=== PATIENT | female | born 1960 | race African-American/Black ===

== ENCOUNTER 2019-08-09 16:29 | Emergency (ER) | payer OTHER ==
[~2019-08-09] VITALS: Ht 167.6 cm; Wt 158.8 kg
[2019-08-09 16:31] VITALS: BP 141/79
[2019-08-09 18:03] LABS: APPEARANCE,URINE CLEAR (CLEAR); BILIRUBIN,URINE NEGATIVE (NEGATIVE); BLOOD, URINE 2+ (NEGATIVE); COLOR,URINE YELLOW (YELLOW); LEUKOCYTE ESTERASE ,URINE NEGATIVE (NEGATIVE); NITRITE, URINE NEGATIVE (NEGATIVE); UGLUCOSE NEGATIVE (NEGATIVE)
[2019-08-09 18:14] LABS: RBC,URINE 11-20 (MOD) /HPF (0-5); WBC,URINE 0-5 /HPF (0-5)
[2019-08-09 18:16] LABS: HEMATOCRIT 31.6 % (36-48); MEAN CORPUSCULAR HEMOGLOBIN 30 pg (27-31); MEAN CORPUSCULAR HGB CONC 32 g/dL (33-37); MEAN CORPUSCULAR VOLUME 95.3 fL (80-94); PLATELET COUNT (AUTO) 151 K/uL (140-450); RED BLOOD CELL COUNT(AUTO) 3.31 MIL/uL (4.20-5.40); RED CELL DISTRIBUTION WIDTH 17.5 % (11.6-13.7); WHITE BLOOD COUNT (AUTO) 9.5 K/uL (4.8-10.8)
[2019-08-09 18:31] LABS: ANION GAP 12.7 (8-16); CARBON DIOXIDE 30.8 mmol/L (21-32); CREATININE 2.2 mg/dL (0.6-1.3); POTASSIUM 3.5 mmol/L (3.5-5.1)
[2019-08-09 18:35] LABS: ALBUMIN 2.5 g/dL (3.4-5.0); TOTAL BILIRUBIN 1.9 mg/dL (0.0-1.0)
[2019-08-09 18:58] LABS: BASOPHILS % (MANUAL) 0 % (0-2); EOSINOPHILS % (MANUAL) 5 % (0-4); LYMPHOCYTES % (MANUAL) 7 % (20-46); MONOCYTES % (MANUAL) 13 % (5-12)
[2019-08-09] MEDS: LEVOFLOXACIN 500 MG TAB PO ONE (19:14)
[2019-08-10 01:14] VITALS: BP 150/58
== END 2019-08-10 01:14 ==
LOC: MED 16:29
DX: G89.29 Other chronic pain (principal); M25.511 Pain in right shoulder; D64.9 Anemia, unspecified; E87.1 Hypo-osmolality and hyponatremia; E11.22 Type 2 diabetes mellitus with diabetic chronic kidney disease; N18.6 End stage renal disease; R74.0 Nonspecific elevation of levels of transaminase and lactic acid dehydrogenase [LDH]; Z99.2 Dependence on renal dialysis; Z88.5 Allergy status to narcotic agent
CPT/HCPCS: 36415; 71045; 73030; 80053; 81001; 83605; 85025; 87040; 87086; 87186; 99284; Q0092; C1758

== ENCOUNTER 2020-03-18 14:50 | Emergency (ER) | payer OTHER ==
[~2020-03-18] VITALS: Ht 152.4 cm; Wt 158.8 kg
[~2020-03-18 14:50] MED LIST: ACET325C8 PO; ASPI-1822 PO; BUME1TAB92 PO; CALC500C17 PO; DOCU-299 PO; ESCI20TA PO; GABA100C PO; LACT10SO1 PO; LID5T TP; LORA-476 PO; MIRABULK PO; MULT-1469 PO; NITR0.4T2 SL; NUTR30LI3 PO; OXYC40TE66 PO; SODI45SP10 NS; SYN.075 PO; TRAM50TA1 PO
[2020-03-18 14:53] VITALS: BP 164/86
[2020-03-18] MEDS ORDERED: HYDROmorphone PFS 2 MG/ML SYR IM ONE ×3 (15:35→18:40)
[2020-03-18 16:53] LABS: BASOPHILS # (AUTO) 0.1 K/uL (0.00-0.22); BASOPHILS % (AUTO) 1.1 % (0.0-2.0); EOSINOPHILS # (AUTO) 0.3 K/uL (0-0.4); HEMATOCRIT 27.5 % (36-48); HEMOGLOBIN 8.5 g/dL (12.0-16.0); LYMPHOCYTES % (AUTO) 17.2 % (20.5-51.1); MEAN CORPUSCULAR HEMOGLOBIN 24 pg (27-31); MEAN CORPUSCULAR HGB CONC 31 g/dL (33-37); MEAN CORPUSCULAR VOLUME 77.3 fL (80-94); MONOCYTES # (AUTO) 0.5 K/uL (0.8-1.0); MONOCYTES % (AUTO) 7.9 % (1.7-9.3); NEUTROPHILS # (AUTO) 4.1 K/uL (1.8-7.7); NEUTROPHILS % (AUTO) 68.8 % (42.2-75.2); PLATELET COUNT (AUTO) 294 K/uL (140-450); RED BLOOD CELL COUNT(AUTO) 3.56 MIL/uL (4.20-5.40)
[2020-03-18 17:04] LABS: ALBUMIN 2.3 g/dL (3.4-5.0); CARBON DIOXIDE 31.3 mmol/L (21-32); CREATININE 2.2 mg/dL (0.6-1.3); POTASSIUM 3.3 mmol/L (3.5-5.1); TOTAL BILIRUBIN 0.4 mg/dL (0.0-1.0)
[2020-03-18] MEDS ORDERED: diphenhydrAMINE 50 MG/ML VIAL IM ONE (17:10)
[2020-03-18 22:22] VITALS: BP 145/56
== END 2020-03-18 22:23 | disposition home or self-care (01) ==
LOC: MED 14:50
DX: G89.29 Other chronic pain (principal); D64.9 Anemia, unspecified; E11.8 Type 2 diabetes mellitus with unspecified complications; E03.9 Hypothyroidism, unspecified; E11.22 Type 2 diabetes mellitus with diabetic chronic kidney disease; F41.8 Other specified anxiety disorders; F31.9 Bipolar disorder, unspecified; F20.9 Schizophrenia, unspecified; I50.9 Heart failure, unspecified; I10 Essential (primary) hypertension; I13.0 Hypertensive heart and chronic kidney disease with heart failure and stage 1 through stage 4 chronic kidney disease, or unspecified chronic kidney disease; K21.9 Gastro-esophageal reflux disease without esophagitis; N18.9 Chronic kidney disease, unspecified; Z95.1 Presence of aortocoronary bypass graft
CPT/HCPCS: 36415; 80053; 85025; 96372; 99284; J1170; J1200

== ENCOUNTER 2020-06-30 17:51 | Emergency (ER) | payer OTHER ==
[~2020-06-30] VITALS: Ht 165.1 cm; Wt 204.1 kg
[2020-06-30 18:15] VITALS: BP 155/82
[2020-06-30] MEDS ORDERED: hydrALAZINE 20 MG/ML VIAL IVP ONE (19:25)
[2020-06-30] MEDS ORDERED: KETOROLAC 30 MG/ML VIAL IVP ONE (19:25)
[2020-06-30] MEDS ORDERED: MORPHINE SULFATE 4 MG/ML SYR IVP ONE (20:25)
[2020-06-30] MEDS ORDERED: ACETAMINOPHEN EXTRA STRENGTH 500 MG TAB PO ONE (20:25)
[2020-06-30] MEDS ORDERED: diphenhydrAMINE 50 MG/ML VIAL IVP ONE (20:40)
[2020-06-30] MEDS ORDERED: LORazepam 2 MG/ML VIAL IVP ONE (21:30)
[2020-07-01] MEDS ORDERED: ZOLPIDEM 5 MG TAB PO ONE ×2 (01:20→01:45)
[2020-07-01] MEDS ORDERED: diphenhydrAMINE 50 MG/ML VIAL IVP ONE ×2 (01:20→10:10)
[2020-07-01] MEDS ORDERED: KETOROLAC 30 MG/ML VIAL IVP ONE (01:45)
[2020-07-01] MEDS ORDERED: MORPHINE SULFATE 4 MG/ML SYR IVP ONE ×2 (09:30→09:55)
[2020-07-01] MEDS ORDERED: diphenhydrAMINE 50 MG/ML VIAL ONE (10:11)
[2020-07-01 10:53] VITALS: BP 162/85
== END 2020-07-01 10:50 | disposition home or self-care (01) ==
LOC: MED 17:51
DX: R51 Headache (principal); G89.29 Other chronic pain; M54.5 Low back pain; E11.22 Type 2 diabetes mellitus with diabetic chronic kidney disease; I12.9 Hypertensive chronic kidney disease with stage 1 through stage 4 chronic kidney disease, or unspecified chronic kidney disease; N18.9 Chronic kidney disease, unspecified; E07.9 Disorder of thyroid, unspecified; Z88.5 Allergy status to narcotic agent; Z88.8 Allergy status to other drugs, medicaments and biological substances; Z79.899 Other long term (current) drug therapy
CPT/HCPCS: 70450; 96374; 96375; 96376; 99285; J0360; J1200; J1885; J2060; J2270; 99284

== ENCOUNTER 2020-08-23 03:09 | Emergency (ER) | payer OTHER ==
[~2020-08-23] VITALS: Ht 170.2 cm; Wt 172.4 kg
[2020-08-23 03:11] VITALS: BP 167/82
[2020-08-23] MEDS ORDERED: LORazepam 2 MG/ML VIAL IM ONE (03:30)
[2020-08-23] MEDS ORDERED: ESCITALOPRAM 20 MG TAB PO SCH (08:35)
[2020-08-23] MEDS ORDERED: GABAPENTIN 300 MG CAP PO ONE (08:35)
[2020-08-23] MEDS ORDERED: LEVOTHYROXINE 0.075 MG TAB PO SCH (08:35)
[2020-08-23] MEDS ORDERED: oxyCODONE 10 MG TABER PO ONE ×2 (08:35→13:50)
[2020-08-23] MEDS ORDERED: BUMETANIDE 1 MG TAB PO ONE (08:35)
[2020-08-23 15:40] VITALS: BP 144/77
== END 2020-08-23 15:40 ==
LOC: MED 03:09
DX: F41.9 Anxiety disorder, unspecified (principal); E03.9 Hypothyroidism, unspecified; E11.9 Type 2 diabetes mellitus without complications; I51.9 Heart disease, unspecified; I10 Essential (primary) hypertension; N28.9 Disorder of kidney and ureter, unspecified; Z95.1 Presence of aortocoronary bypass graft; Z88.8 Allergy status to other drugs, medicaments and biological substances; Z88.5 Allergy status to narcotic agent; Z79.899 Other long term (current) drug therapy
CPT/HCPCS: 96372; 99285; J2060; 99284

== ENCOUNTER 2021-08-04 19:28 | Inpatient (IN) | payer OTHER, SELFPAY ==
[~2021-08-04] VITALS: Ht 167.6 cm; Wt 156.5 kg
[2021-08-04 19:28] VITALS: BP 141/55
[~2021-08-04 19:28] MED LIST changes: -ACET325C8 PO; +ASCO500T95 PO; -ASPI-1822 PO; +ASPI81CT95 PO; +CARV6.252 PO; +CEPH-588 PO; +CHOL100037 PO; -DOCU-299 PO; +EPOE10004 SQ; +ESCI10TA PO; -ESCI20TA PO; +FERR325E14 PO; +LACT-103 PO; -LACT10SO1 PO; -LID5T TP; +LORA10TA19 PO; -NITR0.4T2 SL; -NUTR30LI3 PO; +ZINC50TA PO
--- NOTE | 2021-08-04 19:28 | NUR ---
MENGRu FROM [facility], PT. IS A 60 Y/O FEMALE THAT CAME INTO ED WITH C/O OF NOSEBLEED. PER [facility], FACILITY STATES THAT PT. WAS PICKING NOSE WITH FORK AND STRAW CAUSING NOSEBLEED THAT HAS NOW TRAVELED TO SPITTING BLOOD. DENIES N/V/D. DENIES PAIN AT THIS TIME. AAOX4; VSS; GCS 15 PMH: SEE COMPLETE ASSESSMENT ALLERGIES: CODEINE, MORPHINE, PROMETHAZINE
--- NOTE | 2021-08-04 20:05 | NUR ---
LAB AT BEDSIDE
--- NOTE | 2021-08-04 20:09 | NUR ---
Jennifer case in ED - 08/04/21 at [address] Faustin examining patient.
--- NOTE | 2021-08-04 20:09 | NUR ---
TRISTIAN CHARLES AT BEDSIDE FOR MEDICAL EXAMINATION
[2021-08-04] MEDS ORDERED: SILVER NITRATE APPLICATOR 1 EA SWAB TP ONE ×2 (20:28→20:30)
[2021-08-04 20:36] LABS: BASOPHILS % (AUTO) 0.9 % (0.0-2.0); EOSINOPHILS # (AUTO) 0.1 K/uL (0-0.4); EOSINOPHILS % (AUTO) 2.9 % (0.0-4.0); HEMATOCRIT 20.2 % (36-48); LYMPHOCYTES # (AUTO) 0.6 K/uL (2.5-16.5); LYMPHOCYTES % (AUTO) 12.9 % (20.5-51.1); MEAN CORPUSCULAR HEMOGLOBIN 29 pg (27-31); MEAN CORPUSCULAR HGB CONC 32 g/dL (33-37); MEAN CORPUSCULAR VOLUME 92.1 fL (80-94); MONOCYTES # (AUTO) 0.6 K/uL (0.8-1.0); MONOCYTES % (AUTO) 12.1 % (1.7-9.3); NEUTROPHILS # (AUTO) 3.6 K/uL (1.8-7.7); NEUTROPHILS % (AUTO) 71.2 % (42.2-75.2); PLATELET COUNT (AUTO) 199 K/uL (140-450); RED BLOOD CELL COUNT(AUTO) 2.19 MIL/uL (4.20-5.40); RED CELL DISTRIBUTION WIDTH 18.6 % (11.6-13.7)
[2021-08-04 20:39] LABS: HEMOGLOBIN 6.4 g/dL (12.0-16.0)
[2021-08-04 20:47] LABS: ANION GAP 8.7 (8-16); CARBON DIOXIDE 27.9 mmol/L (21-32); POTASSIUM 3.6 mmol/L (3.5-5.1)
[2021-08-04 21:03] LABS: CREATININE 4.9 mg/dL (0.6-1.3)
[2021-08-04 21:04] LABS: PROTHROMBIN TIME 11.5 secs (10.8-13.4)
[2021-08-04] MEDS ORDERED: DESMOPRESSIN 4 MCG/ML AMP IV SCH (21:05)
[2021-08-04] MEDS ORDERED: TRANEXAMIC ACID 1,000 MG in NACL 0.9% 50 ML IV STA (21:12)
[2021-08-04] MEDS ORDERED: TRANEXAMIC ACID 1,000 MG/10 ML VIAL ONE (21:13)
--- NOTE | 2021-08-04 21:16 | NUR ---
TRISTIAN CHARLES AT BEDSIDE
[2021-08-04] MEDS ORDERED: NACL 0.9% 500 ML IV ONE (21:25)
--- NOTE | 2021-08-04 22:00 | NUR ---
DELAY IN MED ADMINISTRATION DUE TO UNSUCCESSFUL IV ATTEMPTS. TRISTIAN BRITTON MADE AWARE.
--- NOTE | 2021-08-04 22:30 | NUR ---
TRISTIAN CHARLES AT BEDSIDE ATTEMPTING TO PLACE ULTRASOUND GUIDED IV LINE.
[2021-08-04] MEDS ORDERED: HYDROcodone/APAP 10/325 MG 1 TAB TAB PO STA (22:52)
[2021-08-04] MEDS ORDERED: HYDROcodone/APAP 10/325 MG 1 TAB TAB ONE (22:56)
--- NOTE | 2021-08-05 00:33 | NUR ---
PT. IN SEMI FOWLERS POSITION WITH EYES CLOSED, LAYING COMFORTABLY IN BED. VOICES NO COMPLAINTS AT THIS TIME.
[2021-08-05] MEDS ORDERED: ONDANSETRON 4 MG/2 ML VIAL IVP PRN (00:55)
[2021-08-05] MEDS ORDERED: LORazepam 2 MG/ML VIAL IVP PRN (00:55)
--- NOTE | 2021-08-05 01:20 | NUR ---
BLOOD TRANSFUSION INITIATED AT THIS TIME.
--- NOTE | 2021-08-05 04:00 | NUR ---
SECOND UNIT OF BLOOD INITIATED.
--- NOTE | 2021-08-05 07:15 | NUR ---
REPORT GIVEN TO STEPAN BURGER. TRANSFER OF CARE AT THIS TIME.
--- NOTE | 2021-08-05 07:16 | NUR ---
REPORT AND CONTINUATION OF CARE RECEIVED FROM STEPAN BEAUCHAMP.
--- NOTE | 2021-08-05 07:40 | NUR ---
RECEIVED REPORT FROM ER NURSE ON PT. AWAITING PT ARRIVAL TO UNIT.
--- NOTE | 2021-08-05 07:45 | NUR ---
REPORT GIVEN TO STEPAN YUN FOR ADMISSION.
--- NOTE | 2021-08-05 07:46 | NUR ---
Patient will be admitted to care of DR ALVARADO. Admited to TELE. Will go to room 126B. Belongings list completed. Report to STEPAN YUN.
--- NOTE | 2021-08-05 07:49 | NUR ---
PT ARRIVED TO UNIT. PT AA&OX4, NON AMBULATORY DUE TO WEIGHT. PT DOES NOT TRY TO AMBULATE. PT ON RA BREATHING NORMAL AND UNLABORED. PT HAS R-FOREARM 20G IV INTACT AND PATENT. SKIN IS WARM, DRY, AND INTACT. WILL CONTINUE TO MONITOR PT CONDITION.
[2021-08-05 08:00] VITALS: BP 195/84
[2021-08-05] MEDS: MORPHINE SULFATE 2 MG/ML SYR IVP PRN ×2 (08:24→16:44)
--- NOTE | 2021-08-05 08:24 | NUR ---
PT COMPLAINED OF PAIN IN BACK AND BUTTOCKS 06/16. GAVE MORPHINE 1 MG PRN FOR SEVERE PAIN. WILL REASSESS IN 30 MIN.
--- NOTE | 2021-08-05 08:54 | NUR ---
PAIN REASSESSMENT COMPLETED. PT DENIES PAIN OR DISCOMFORT AT THIS TIME. WILL CONTINUE TO MONITOR.
--- NOTE | 2021-08-05 09:20 | NUR ---
PT CONDITION IS STABLE. PT IS AWAKE AND COMPLAININD OF BED BEING UNCOMFORTABLE. LET PT KNOW THAT I DO NOT HAVE ANOTHER BED AVAILABLE BUT FIXED LINENS AND CHUCKS UNDER PT. PT STATED FELT A LITTLE BETTER "BUT MY BED AT HOME IS MORE COMFORTABLE". WILL CONTINUE TO ASSESS PT CONDITION.
--- NOTE | 2021-08-05 11:32 | NUR ---
PT CONDITION IS STABLE. PT IS ASLEEP AND DOES NOT APPEAR TO BE IN PAIN OR DISCOMFORT. WILL CONTINUE TO MONITOR.
[2021-08-05 12:00] VITALS: BP 156/89
--- NOTE | 2021-08-05 13:30 | NUR ---
HD CONSENT SIGNED FOR PT, MACHINIST HELPER EXPLAINED PROCEDURE AND SIGNED CONSENT. SIVAKMUAR (HD NURSE) NOTIFIED ABOUT PT NEEDING HD TOMORROW. Addendum: 08/05/21 at 1341 by Chey Escobar RN RN DISREGARD. WRONG PT.
[2021-08-05] MEDS ORDERED: CLONIDINE HYDROCHLORIDE 0.1 MG TAB PO PRN (13:45)
--- NOTE | 2021-08-05 13:45 | NUR ---
PT IS ASLEEP. CONDITION IS STABLE. PT ON RA WITH NORMAL, UNLABORED BREATHING. PT DOES NOT APPEAR TO BE IN PAIN OR DISTRESS. WILL CONTINUE TO MONITOR PT.
--- NOTE | 2021-08-05 14:14 | NUR ---
REQUESTED PSYCH EVAL FOR PT. CALLED [facility] TO MAKE AN APPOINTMENT FOR PSYCH EVALUATION ORDERED BY DR. ALVARADO. PLACED ORDER PER PHYSICIAN ORDER.
--- NOTE | 2021-08-05 15:40 | NUR ---
PT CONDITION IS STABLE. PT IS ASLEEP AND DOES NOT APPEAR TO BE IN PAIN OR DISCOMFORT. WILL CONTINUE TO MONITOR PT CONDITION.
[2021-08-05 16:00] VITALS: BP 138/63
--- NOTE | 2021-08-05 16:34 | NUR ---
DC PLANNIN YRS OLD FEMALE PATIENT WAS ADMITTED FROM [facility] WITH A DX OF EPISTAXIS. PT HAS A HX OF KIDNEY DISEASE , EPISTAXIS, CAD, CABG, HTN AND SCHIZOAFFECTIVE DISORDER H/H WAS 6.4/20.2 ON ADMISSION. CXR SHOWED MILD INTERSTITIAL PULMONARY EDEMA, BORDERLINE CARDIOMEGALY. RAPID COVID TEST NEGATIVE. ADMINISTERED IVF, AND CONTINUED HOME MEDS. TRANSFUSED 2 UNITS PRBC H/H 7.3/22.3. CONSULTED WITH NEPHRO AND PSYCH. STARTED ON ABILIFY. DC PLAN TO GO BACK TO [facility] WHEN STABLE. CM TO FOLLOW
--- NOTE | 2021-08-05 16:44 | NUR ---
PT COMPLAINED OF BACK AND BOTTOM PAIN 06/16. PT STATED PAIN RADIATED TO LEGS AND ARMS. WILL REASSESS IN 30 MIN.
--- NOTE | 2021-08-05 17:45 | NUR ---
CHANGED PT. PT DID NOT TOLERATE WELL. PT WAS AGITATED THROUGHOUT CHANGE. PT STATED "I DO NOT WANT TO BE CHANGED AGAIN". PT IS CLEAN AND CONDITION IS STABLE. WILL CONTINUE TO MONITOR.
--- NOTE | 2021-08-05 18:33 | NUR ---
PLACED ORDER FOR EKG FOR DR. Glover. ATTEMPTED TO CONTACT RT MULTIPLE TIMES WITH NO ANSWER. WILL KEEP TRYING.
--- NOTE | 2021-08-05 19:10 | NUR ---
RECEIVED REPORT FROM COURT YING FOR CONTINUITY OF CARE. PT SITTING UP AAOX4. NO APPARENT S/S OF ACUTE DISTRESS. BREATHING EVEN AND UNLABORED ON RA WITH O2 SAT OF 97%. NO C/O CP, SOB OR PAIN. R FA 20G, INTACT/PATENT. POC AND WHITE COMMUNICATION BOARD UPDATED. BED IN LOW/LOCKED POSITION. CALL LIGHT WITHIN REACH. PT ENCOURAGED TO CALL FOR ANY NEEDS/ASSISTANCE. WILL CONTINUE TO MONITOR.
--- NOTE | 2021-08-05 19:36 | NUR ---
GAVE CHANGE OF SHIFT REPORT TO NIGHT NURSE AT BEDSIDE FOR CONTINUITY OF CARE. DISCUSSED POC. PT STABLE.
[2021-08-05 20:00] VITALS: BP 137/63
[2021-08-05] MEDS: oxyCODONE 10 MG TABER PO SCH (21:00)
[2021-08-05] MEDS: carvediloL 6.25 MG TAB PO SCH (21:00)
[2021-08-05] MEDS: ARIPiprazole 10 MG TAB PO SCH (21:00)
[2021-08-05] MEDS ORDERED: oxyCODONE 10 MG TABER PO ONE (22:35)
[2021-08-06] VITALS: BP 162/76
[2021-08-06 03:54] LABS: BASOPHILS % (AUTO) 0.8 % (0.0-2.0); EOSINOPHILS # (AUTO) 0.1 K/uL (0-0.4); EOSINOPHILS % (AUTO) 2.6 % (0.0-4.0); HEMATOCRIT 22.3 % (36-48); HEMOGLOBIN 7.3 g/dL (12.0-16.0); LYMPHOCYTES # (AUTO) 1.1 K/uL (2.5-16.5); LYMPHOCYTES % (AUTO) 19.3 % (20.5-51.1); MEAN CORPUSCULAR HEMOGLOBIN 30 pg (27-31); MEAN CORPUSCULAR HGB CONC 33 g/dL (33-37); MEAN CORPUSCULAR VOLUME 90.6 fL (80-94); MONOCYTES # (AUTO) 0.6 K/uL (0.8-1.0); MONOCYTES % (AUTO) 11.4 % (1.7-9.3); NEUTROPHILS # (AUTO) 3.6 K/uL (1.8-7.7); NEUTROPHILS % (AUTO) 65.9 % (42.2-75.2); PLATELET COUNT (AUTO) 191 K/uL (140-450); RED BLOOD CELL COUNT(AUTO) 2.46 MIL/uL (4.20-5.40); RED CELL DISTRIBUTION WIDTH 18.3 % (11.6-13.7); WHITE BLOOD COUNT (AUTO) 5.5 K/uL (4.8-10.8)
[2021-08-06 04:00] VITALS: BP 145/78
[2021-08-06 04:02] LABS: ALBUMIN 1.8 g/dL (3.4-5.0); ANION GAP 13.5 (8-16); CARBON DIOXIDE 25.4 mmol/L (21-32); POTASSIUM 3.9 mmol/L (3.5-5.1); TOTAL BILIRUBIN 0.3 mg/dL (0.0-1.0)
[2021-08-06 04:07] LABS: CREATININE 4.6 mg/dL (0.6-1.3)
--- NOTE | 2021-08-06 04:10 | NUR ---
RECEIVED CRITICAL LABS, BUN 76 AND CREATININE 4.6, BOTH TRENDING DOWN.
[2021-08-06] MEDS: LEVOTHYROXINE 0.075 MG TAB PO SCH (06:22)
--- NOTE | 2021-08-06 07:02 | NUR ---
REPORT GIVEN TO TYESHA YING FOR CONTINUITY OF CARE. PT SITTING UP AAOX3. NO APPARENT S/S OF ACUTE DISTRESS. BREATHING EVEN AND UNLABORED. BED IN LOW/LOCKED POSITION. CALL LIGHT WITHIN REACH. ALL NEEDS MET AT THIS TIME.
--- NOTE | 2021-08-06 07:15 | NUR ---
RECEIVED REPORT FROM NIGHT RN FOR CONTINUITY OF CARE. PT SITTING UP AAOX4. NO APPARENT S/S OF ACUTE DISTRESS. BREATHING EVEN AND UNLABORED ON RA WITH O2 SAT OF 97%,NO SOB PT COMPLAINS ABOUT PAIN . IV IN R FA 20G, INTACT/PATENT. POC UPDATED. BED IN LOW/LOCKED POSITION. CALL LIGHT WITHIN REACH. PT ENCOURAGED TO CALL FOR ANY NEEDS/ASSISTANCE.
--- NOTE | 2021-08-06 07:20 | NUR ---
PT COMPLAINS ABOUT PAIN, GOT MEDICATED PRN ORDER. ALLSAFETY MEASURES ON PLACE, CALLS LIGHT WITHIN REACH
[2021-08-06] MEDS: oxyCODONE 10 MG TABER PO SCH ×2 (07:57→20:23)
[2021-08-06 08:00] VITALS: BP 138/65
[2021-08-06] MEDS: LORATADINE 10 MG TAB PO SCH (08:06)
[2021-08-06] MEDS: ASCORBIC ACID 500 MG TAB PO SCH (08:06)
[2021-08-06] MEDS: ESCITALOPRAM 20 MG TAB PO SCH (08:07)
[2021-08-06] MEDS: carvediloL 6.25 MG TAB PO SCH ×2 (08:08→20:23)
[2021-08-06] MEDS: VITAMIN D 400 IU TAB PO SCH (08:08)
[2021-08-06] MEDS: MORPHINE SULFATE 2 MG/ML SYR IVP PRN (08:08)
--- NOTE | 2021-08-06 08:35 | NUR ---
PT COMPLAINS ABOUT PAIN, DR ALVARADO TALKED TO THE PT. ALL SAFETY MEASURES ON PLACE, CALLS LIGHT WITHIN REACH
[2021-08-06] MEDS ORDERED: ESCITALOPRAM 20 MG TAB PO SCH (09:00)
--- NOTE | 2021-08-06 10:00 | NUR ---
DR ALVARADO ORDER ONE UNIT OF BLOOD, LAB CALLED THAT THEY CANNOT PROVIDE THAT BLOOD TO THE PT SINCE IT IS NOT CRITICAL LAB,AND THE PT NOT ACTIVELY BLEEDING. DR KING ATTENDING , HIS PHONE NUMBER WAS PROVIDED TO THE LAB SO THEY CAN INFORM HIM
--- NOTE | 2021-08-06 10:05 | NUR ---
DR ALVARADO WAS INFORMED THAT LAB CAN PROVIDE BLOOD IF IT IS CRITICAL LAB RESULT AND THEY WILL HAVE TO ORDER ONE FOR THE PT AND WILL TAKE SOME TIME. ALSO INFORMED THAT PT GOT BLOOD TRANSFUSION YESTERDAY, DR ALVARADO CANCELLED THE BLOOD ORDER
[2021-08-06 12:00] VITALS: BP 142/78
[2021-08-06] MEDS: MORPHINE SULFATE 4 MG/ML SYR IVP PRN ×3 (12:06→21:04)
--- NOTE | 2021-08-06 12:15 | NUR ---
PT LAYING ON BED, NO COMPLAINS. PT GOT CLEANED AND CHANGED, NO SIGNS OF DISTRESS NOTED, BREATHING EVEN UNLABORED . ALL SAFETY PRECAUTIONS IN PLACE. CALLS LIGHT WITHIN REACH
--- NOTE | 2021-08-06 14:20 | NUR ---
PT LAYING ON BED, NO COMPLAINS. NO SIGNS OF DISTRESS NOTED, BREATHING EVEN UNLABORED .ALL NEEDS GOT MET AT THIS TIME . ALL SAFETY PRECAUTIONS IN PLACE. CALLS LIGHT WITHIN REACH
[2021-08-06 16:00] VITALS: BP 137/65
--- NOTE | 2021-08-06 16:15 | NUR ---
PT LAYING ON BED, COMPLAINS ABOUT PAIN GOT MEDICATED PRN ORDER . NO SIGNS OF DISTRESS NOTED, BREATHING EVEN UNLABORED .ALL NEEDS GOT MET AT THIS TIME . ALL SAFETY PRECAUTIONS IN PLACE. CALLS LIGHT WITHIN REACH
--- NOTE | 2021-08-06 18:00 | NUR ---
PT LAYING ON BED, NO COMPLAINS. NO SIGNS OF DISTRESS NOTED, BREATHING EVEN UNLABORED .ALL NEEDS GOT MET AT THIS TIME GOT CLEANED AND CHANGED . ALL SAFETY PRECAUTIONS IN PLACE. CALLS LIGHT WITHIN REACH
--- NOTE | 2021-08-06 19:15 | NUR ---
REPORT GIVEN TO BISHNU DUNCANT NURSE
--- NOTE | 2021-08-06 19:16 | NUR ---
RECEIVED REPORT FROM DAY RN FOR CONTINUITY OF CARE. PT SITTING UP AAOX4 WITH MOMENTS OF CONFUSION. NO APPARENT S/S OF ACUTE DISTRESS. BREATHING EVEN AND UNLABORED ON RA. SKIN IS INTACT WITH DRY SKIN ON BLE. PT IS INCONTINENT TO B/B. NO C/O CP, SOB OR PAIN. R FA 20G, INTACT/PATENT. POC AND WHITE COMMUNICATION BOARD UPDATED. BED IN LOW/LOCKED POSITION. CALL LIGHT WITHIN REACH. PT ENCOURAGED TO CALL FOR ANY NEEDS/ASSISTANCE. WILL CONTINUE TO MONITOR.
[2021-08-06] MEDS: ARIPiprazole 10 MG TAB PO SCH (20:23)
--- NOTE | 2021-08-06 21:04 | NUR ---
REPOSITION PATIENT AND ADMIN PRN MORPHINE IVP FOR BACK PAIN 06/16 NO FURTHER COMPLAINS CALL LIGHT IS WITHIN REACH.
[2021-08-06] MEDS: ACETAMINOPHEN 325 MG TAB PO PRN (23:19)
[2021-08-07] VITALS: BP 150/62
--- NOTE | 2021-08-07 | NUR ---
VITAL SIGNS ARE WITHIN NORMAL LIMITS. PT RTIS, PT IS STABLE. WILL CONTINUE TO MONITOR.
--- NOTE | 2021-08-07 01:00 | NUR ---
PATIENT WITH HX OF LYMPH EDEMA WITH FLUID OOZING FROM R THIGH TOWEL APPLIED. WILL CONTINUE TO MONITOR.
[2021-08-07] MEDS: MORPHINE SULFATE 4 MG/ML SYR IVP PRN ×4 (01:09→13:57)
[2021-08-07] MEDS: ACETAMINOPHEN 325 MG TAB PO PRN ×2 (03:08→08:13)
[2021-08-07 04:00] VITALS: BP 152/72
--- NOTE | 2021-08-07 04:00 | NUR ---
VITAL SIGNS ARE WITHIN NORMAL LIMITS. ALL SAFETY MEASURES ARE IN PLACE.
[2021-08-07] MEDS: LEVOTHYROXINE 0.075 MG TAB PO SCH (05:55)
--- NOTE | 2021-08-07 06:00 | NUR ---
PATIENT CALLING FOR ASSISTANCE. WALKED IN OBSERVED PATIENT SITTING IN BED RTIS, PT IS IRRITABLE AND DEMANDING. PATIENT WAS CLEANED AND REPOSITION WITH ASSISTANCE OF 3 OTHER NURSES. PT TOLERATED WELL. ALL NEEDS MET. WILL CONTINUE TO MONITOR.
[2021-08-07 07:03] LABS: ANION GAP 12.4 (8-16); POTASSIUM 4.4 mmol/L (3.5-5.1)
[2021-08-07 07:11] LABS: BASOPHILS % (AUTO) 0.8 % (0.0-2.0); EOSINOPHILS # (AUTO) 0.1 K/uL (0-0.4); EOSINOPHILS % (AUTO) 2.9 % (0.0-4.0); HEMOGLOBIN 8.3 g/dL (12.0-16.0); LYMPHOCYTES # (AUTO) 0.8 K/uL (2.5-16.5); LYMPHOCYTES % (AUTO) 17.1 % (20.5-51.1); MEAN CORPUSCULAR HEMOGLOBIN 30 pg (27-31); MEAN CORPUSCULAR HGB CONC 32 g/dL (33-37); MEAN CORPUSCULAR VOLUME 92.3 fL (80-94); MONOCYTES # (AUTO) 0.5 K/uL (0.8-1.0); MONOCYTES % (AUTO) 10.9 % (1.7-9.3); NEUTROPHILS # (AUTO) 3.3 K/uL (1.8-7.7); NEUTROPHILS % (AUTO) 68.3 % (42.2-75.2); PLATELET COUNT (AUTO) 212 K/uL (140-450); RED BLOOD CELL COUNT(AUTO) 2.82 MIL/uL (4.20-5.40); WHITE BLOOD COUNT (AUTO) 4.9 K/uL (4.8-10.8)
--- NOTE | 2021-08-07 07:30 | NUR ---
GAVE BEDSIDE REPORT TO DAY RN. PT ENDORSED IN STABLE CONDITION.
[2021-08-07] MEDS: LORATADINE 10 MG TAB PO SCH (08:12)
[2021-08-07] MEDS: oxyCODONE 10 MG TABER PO SCH (08:12)
[2021-08-07] MEDS: carvediloL 6.25 MG TAB PO SCH (08:12)
[2021-08-07] MEDS: ASCORBIC ACID 500 MG TAB PO SCH (08:12)
[2021-08-07] MEDS: VITAMIN D 400 IU TAB PO SCH (08:13)
[2021-08-07] MEDS: ESCITALOPRAM 20 MG TAB PO SCH (08:13)
--- NOTE | 2021-08-07 08:30 | NUR ---
Patient awake, alert and complained of pain was given medication for pain but continues to complain for pain. Safety measures in place and has no further needs.
[2021-08-07] MEDS ORDERED: ABI10 PO (08:48)
[2021-08-07] MEDS ORDERED: CARV6.252 PO (08:48)
[2021-08-07 08:50] LABS: CREATININE 4.6 mg/dL (0.6-1.3)
[2021-08-07] MEDS: LORazepam 2 MG/ML VIAL IM/IVP PRN ×2 (09:42→13:57)
[2021-08-07 14:38] VITALS: BP 158/80
[2021-08-07 14:43] VITALS: BP 158/76
== END 2021-08-07 18:05 | DRG 115 ==
LOC: MED 19:28 → MTU 08-05 01:55 → MMU 08-05 02:11
PROVIDERS: ADMIT Hospitalist; ATTEND Hospitalist
PROC: 30233N1 Transfusion of Nonautologous Red Blood Cells into Peripheral Vein, Percutaneous Approach (ICD-10-PCS; principal; 2021-08-05)
DX: R04.0 Epistaxis (principal); N17.9 Acute kidney failure, unspecified; E44.1 Mild protein-calorie malnutrition; F25.9 Schizoaffective disorder, unspecified; Z68.43 Body mass index [BMI] 50.0-59.9, adult; E11.22 Type 2 diabetes mellitus with diabetic chronic kidney disease; D64.9 Anemia, unspecified; E03.9 Hypothyroidism, unspecified; E66.01 Morbid (severe) obesity due to excess calories; I12.9 Hypertensive chronic kidney disease with stage 1 through stage 4 chronic kidney disease, or unspecified chronic kidney disease; G89.4 Chronic pain syndrome; Z20.822 Contact with and (suspected) exposure to COVID-19; Z99.2 Dependence on renal dialysis; Z88.5 Allergy status to narcotic agent; Z88.8 Allergy status to other drugs, medicaments and biological substances; Z79.899 Other long term (current) drug therapy; Z79.82 Long term (current) use of aspirin; Z79.891 Long term (current) use of opiate analgesic; Z79.890 Hormone replacement therapy; N18.5 Chronic kidney disease, stage 5
CPT/HCPCS: 30901; 36415; 36430; 76770; 80048; 80053; 83880; 85025; 85610; 86886; 86900; 86901; 86920; 87081; 96365; 97163-GP; 99291; J2060; J2270; J2597; J3490; P9016; Q0092

== ENCOUNTER 2021-10-24 21:18 | Inpatient (IN) | payer OTHER, SELFPAY ==
--- NOTE | 2020-10-25 20:59 | NUR ---
SCHEDULED MEDICATIONS GIVEN.BLOOD SUGAR WAS 98.NO INSULIN COVERAGE NEEDED.NO DISTRESS NOTED. WOUND CULTURE OBTAINED. DID NOT GIVE CARDEVILOL DUE TO BP 99/48. ALL PRECAUTIONS IN PLACE. WILL CONTINUE TO MONITOR.
[~2021-10-24] VITALS: Ht 167.6 cm; Wt 206.8 kg
[~2021-10-24 21:18] MED LIST changes: -ASCO500T95 PO; -CEPH-588 PO; -CHOL100037 PO; -EPOE10004 SQ; +GABA-636 PO; -GABA100C PO; -LORA10TA19 PO; -MULT-1469 PO; +MYCPWD TP; +OXYC40TA PO; -OXYC40TE66 PO; +PRON INH; -SODI45SP10 NS; -TRAM50TA1 PO
--- NOTE | 2021-10-24 21:22 | NUR ---
BIBA TAKEN TO BED #10
--- NOTE | 2021-10-24 21:26 | NUR ---
60 YO F BIBA FROM DIALYSIS WITH C/O 10/10 TOTAL BODY PAIN . PT COMPLETED DIALYSIS. RIGHT UPPER CHEST PORT. EDEMA TO BILAT LEGS +1. LUNG SOUNDS CLEAR THROUGHOUT. MEDHX- HTN, ERSD (/TUE/TUE), DM ALLX- CODEIEND, MORPHINE,PROMETHAZINE
[2021-10-24] MEDS ORDERED: ACETAMINOPHEN 325 MG TAB PO ONE (22:05)
--- NOTE | 2021-10-24 22:30 | NUR ---
PT YELLING LOUDLY, STATED HER BOTTOM HURTS. PT SLIGHTLY TURNED TO RIGHT SIDE. PT HAS A LIMITED AMOUNT OF SPACE IN BED D/T WEIGHT. PILLOWS PLACED NEXT TO RIGHT LOWER LEG FOR COMFORT. ALL NEEDS MET AT THIS TIME.
[2021-10-24 22:40] LABS: BASOPHILS # (AUTO) 0.1 K/uL (0.00-0.22); BASOPHILS % (AUTO) 0.3 % (0.0-2.0); EOSINOPHILS # (AUTO) 0.2 K/uL (0-0.4); EOSINOPHILS % (AUTO) 1.1 % (0.0-4.0); HEMATOCRIT 21.3 % (36-48); LYMPHOCYTES # (AUTO) 0.7 K/uL (2.5-16.5); LYMPHOCYTES % (AUTO) 5.1 % (20.5-51.1); MEAN CORPUSCULAR HEMOGLOBIN 27 pg (27-31); MEAN CORPUSCULAR HGB CONC 32 g/dL (33-37); MEAN CORPUSCULAR VOLUME 85.1 fL (80-94); MONOCYTES # (AUTO) 1.4 K/uL (0.8-1.0); MONOCYTES % (AUTO) 9.4 % (1.7-9.3); NEUTROPHILS # (AUTO) 12.2 K/uL (1.8-7.7); NEUTROPHILS % (AUTO) 84.1 % (42.2-75.2); PLATELET COUNT (AUTO) 231 K/uL (140-450); RED CELL DISTRIBUTION WIDTH 19.6 % (11.6-13.7); WHITE BLOOD COUNT (AUTO) 14.5 K/uL (4.8-10.8)
[2021-10-24 22:59] LABS: HEMOGLOBIN 6.7 g/dL (12.0-16.0)
[2021-10-24 23:24] LABS: ALBUMIN 1.2 g/dL (3.4-5.0); ANION GAP 17.6 (8-16); CARBON DIOXIDE 24.7 mmol/L (21-32); PHOSPHORUS 6.1 mg/dL (2.5-4.9); POTASSIUM 5.3 mmol/L (3.5-5.1); TOTAL BILIRUBIN 1.4 mg/dL (0.0-1.0)
[2021-10-24 23:29] LABS: CREATININE 5.3 mg/dL (0.6-1.3)
[2021-10-24] MEDS ORDERED: CEFEPIME 1,000 MG in DEXTROSE 5% 50 ML IV ONE (23:35)
[2021-10-24] MEDS ORDERED: VANCOMYCIN HCL 750 MG in DEXTROSE 5% 250 ML IV ONE (23:35)
[2021-10-24] MEDS ORDERED: METOCLOPRAMIDE 10 MG/2 ML INJ VIAL IVP ONE (23:35)
[2021-10-25] LABS: PROTHROMBIN TIME 14.4 secs (10.8-13.4)
[2021-10-25 00:06] LABS: APPEARANCE,URINE SL CLOUDY (CLEAR); BILIRUBIN,URINE NEGATIVE (NEGATIVE); BLOOD, URINE 1+ (NEGATIVE); COLOR,URINE YELLOW (YELLOW); LEUKOCYTE ESTERASE ,URINE TRACE (NEGATIVE); NITRITE, URINE NEGATIVE (NEGATIVE); PH,URINE 5.5 (5.0-9.0); UGLUCOSE NEGATIVE (NEGATIVE)
[2021-10-25] MEDS ORDERED: CEFEPIME 1,000 MG VIAL ONE (00:31)
[2021-10-25 00:42] LABS: RBC,URINE 0-5 /HPF (0-5)
[2021-10-25 00:45] LABS: COARSE GRANULAR CASTS,URINE 0-3 /LPF (None Seen)
--- NOTE | 2021-10-25 00:55 | NUR ---
VERIFIED WITH GOGO FROM LAB THAT BLOOD CULTURES HAVE BEEN COLLECTED.
[2021-10-25] MEDS ORDERED: GABAPENTIN 300 MG CAP PO SCH (01:05)
[2021-10-25] MEDS ORDERED: ONDANSETRON 4 MG/2 ML VIAL IVP PRN (01:55)
[2021-10-25] MEDS ORDERED: ACETAMINOPHEN 325 MG TAB PO PRN (01:55)
[2021-10-25] MEDS ORDERED: fentaNYL citrate 0.05 MG/ML VIAL IVP ONE (02:00)
[2021-10-25] MEDS ORDERED: oxyCODONE 40 MG TABER PO PRN (02:00)
--- NOTE | 2021-10-25 02:57 | NUR ---
PT IS AWAKE AND ALERT. VSS. PT IS IN STABLE CONDITION. ALL NEEDS MET AT THIS TIME.
--- NOTE | 2021-10-25 04:56 | NUR ---
PT HAS EYES CLOSED. OPENS TO SOUND. EQUAL RISE AND FALL OF CHEST WALL. VSS. PT IS IN STABLE CONDITION. ALL NEEDS MET AT THIS TIME. BED LOCKED IN LOWEST POSITION, SIDE RAILS X2.
[2021-10-25] MEDS ORDERED: CRUSHER, PILL MC ONE (05:30)
--- NOTE | 2021-10-25 05:43 | NUR ---
PT OFFERED TO BE CHANGED AND REPOSITIONED. PT PUT BLANKET OVER FACE AND NODDED HEAD NO. VSS. PT IS IN STABLE CONDITION. BED LOCKED IN LOWEST POSITION, SIDE RAILS.
--- NOTE | 2021-10-25 06:04 | NUR ---
4 HOSPITAL PERSONNEL AT BEDSIDE TO HELP TURN PT FOR INSPECTION OF WOUNDS. LIMITED VISIUALIZATION OF ENTIRE BACKSIDE DUE TO LIMITED SPACE TO TURN PT. PT UNCOOPERATIVE, PT YELLING "SHAYLA HELP ME".
--- NOTE | 2021-10-25 07:24 | NUR ---
IRENE STONE FOR REGARDING SLIDING SCALE. Addendum: 10/25/21 at 3325 by SONIA MICHELET NOEL
--- NOTE | 2021-10-25 07:26 | NUR ---
REPORT RECEIVED FROM STELLA YING FOR CONTINUITY OF CARE.
--- NOTE | 2021-10-25 07:26 | NUR ---
Pt report given to STEPAN BESS. Transfer of care at this time.
--- NOTE | 2021-10-25 08:40 | NUR ---
Patient will be admitted to care of DR SARAVIA. Admited to TELEMETRY. Will go to [id number]. Belongings list completed. Report to PETERSON YING.
[2021-10-25] MEDS ORDERED: ALBUTEROL 0.083% 2.5 MG/3 ML NEBU INH PRN (08:55)
[2021-10-25] MEDS ORDERED: VANCOMYCIN PER PHARMACY MC PRN (09:10)
[2021-10-25] MEDS ORDERED: DEXTROSE 50% 50 ML SYR IVP PRN (09:20)
[2021-10-25] MEDS: carvediloL 6.25 MG TAB PO SCH ×2 (09:25→20:58)
[2021-10-25] MEDS: BUMETANIDE 1 MG TAB PO SCH ×3 (09:25→17:00)
[2021-10-25] MEDS: ESCITALOPRAM 20 MG TAB PO SCH (09:26)
[2021-10-25] MEDS: LEVOTHYROXINE 0.075 MG TAB PO SCH (09:26)
[2021-10-25] MEDS: FERROUS SULFATE 325 MG TABEC PO SCH ×2 (09:29→20:58)
[2021-10-25] MEDS: CALCIUM CARBONATE 500 MG TAB.CHEW PO SCH (09:29)
[2021-10-25] MEDS: DOCUSATE SODIUM 100 MG GELCAP PO SCH (09:35)
--- NOTE | 2021-10-25 09:35 | NUR ---
PT WITH SPO2 OF 93% ON ROOM AIR. BREATH SOUNDS EQUAL NO SOB OR WHEEZING. NO SIGNS OF DISTRESS. WILL CONTINUE TO MONITOR
--- NOTE | 2021-10-25 09:36 | NUR ---
MEDICATIONS GIVEN PER MD ORDER. PT EDUCATED , PATIENT ASSISTED WITH BREAKFAST ALL SAFETY MEASURES ARE IN PLACE
[2021-10-25] MEDS: cefTRIAXone 2,000 MG in DEXTROSE 5% 100 ML IV SCH (10:00)
[2021-10-25 10:24] LABS: BASOPHILS # (AUTO) 0.1 K/uL (0.00-0.22); BASOPHILS % (AUTO) 0.5 % (0.0-2.0); EOSINOPHILS # (AUTO) 0.4 K/uL (0-0.4); EOSINOPHILS % (AUTO) 2.5 % (0.0-4.0); HEMOGLOBIN 7.3 g/dL (12.0-16.0); LYMPHOCYTES # (AUTO) 0.8 K/uL (2.5-16.5); LYMPHOCYTES % (AUTO) 5.8 % (20.5-51.1); MEAN CORPUSCULAR HEMOGLOBIN 27 pg (27-31); MEAN CORPUSCULAR HGB CONC 32 g/dL (33-37); MEAN CORPUSCULAR VOLUME 86.8 fL (80-94); MONOCYTES % (AUTO) 7.1 % (1.7-9.3); NEUTROPHILS # (AUTO) 12.3 K/uL (1.8-7.7); NEUTROPHILS % (AUTO) 84.1 % (42.2-75.2); PLATELET COUNT (AUTO) 237 K/uL (140-450); RED BLOOD CELL COUNT(AUTO) 2.65 MIL/uL (4.20-5.40); RED CELL DISTRIBUTION WIDTH 19.9 % (11.6-13.7); WHITE BLOOD COUNT (AUTO) 14.6 K/uL (4.8-10.8)
[2021-10-25 10:27] LABS: ALBUMIN 1.1 g/dL (3.4-5.0); ANION GAP 15.4 (8-16); CARBON DIOXIDE 25.8 mmol/L (21-32); POTASSIUM 5.2 mmol/L (3.5-5.1); TOTAL BILIRUBIN 1.3 mg/dL (0.0-1.0)
[2021-10-25 10:42] LABS: CREATININE 5.5 mg/dL (0.6-1.3)
--- NOTE | 2021-10-25 11:30 | NUR ---
G ASSESSED, PT WITHIN THERAPEUTIC RANGE NO ACTION AT THIS TIME,
[2021-10-25] MEDS: LORazepam 1 MG TAB PO PRN (11:59)
[2021-10-25 12:00] VITALS: BP 103/53
[2021-10-25] MEDS ORDERED: VANCOMYCIN 2,000 MG in DEXTROSE 5% 500 ML IV SCH (12:00)
[2021-10-25] MEDS: BLOOD GLUCOSE MONITORING 1 DEV DEV FS SCH ×3 (12:19→20:57)
--- NOTE | 2021-10-25 13:20 | NUR ---
PATIENT TRANSFERRED INTO BARIATRIC BED PATIENT EDUCATED TOLERATED WELL.
--- NOTE | 2021-10-25 14:12 | NUR ---
MD OSORIO AT BEDSIDE , ALL SAFETY MEASURES ARE IN PLACE
--- NOTE | 2021-10-25 15:30 | NUR ---
PATIENT COMPLAINAS OF FEELING ANXIOUS PRN MEDICATION GIVEN ,
--- NOTE | 2021-10-25 16:30 | NUR ---
BG 149 , NO ACTION AT THIS TIME , HD NURSE AT BEDSIDE
[2021-10-25 18:00] VITALS: BP 90/44
--- NOTE | 2021-10-25 18:38 | NUR ---
HD NURSE AT BEDSIDE. PT IN NO S/SX OF DISTRESS 92% 02
--- NOTE | 2021-10-25 19:30 | NUR ---
PATIENT ENDORSED TO SUPERVISOR GATE SERVICES , PT IN STABLE CONDITION.
--- NOTE | 2021-10-25 19:31 | NUR ---
RECEIVED PT FROM DAY SHIFT RN FOR CONTINUITY OF CARE. PT AAO X 1. PT ON ROOM AIR BREATHING UNLABORED AND EQUAL.PT ON BARIATRIC BED.DIALYSIS NURSE AT BEDSIDE, PT IS CURRENTLY UNDERGOING DIALYSIS. ALL PRECAUTIONS IN PLACE. WILL CONTINUE TO MONITOR.
--- NOTE | 2021-10-25 20:59 | NUR ---
SCHEDULED MEDICATIONS GIVEN.BLOOD SUGAR WAS 98.NO INSULIN COVERAGE NEEDED.NO DISTRESS NOTED. WOUND CULTURE OBTAINED. DID NOT GIVE CARVEDILOL DUE TO BP 99/48. ALL PRECAUTIONS IN PLACE. WILL CONTINUE TO MONITOR.
--- NOTE | 2021-10-25 21:15 | NUR ---
PT REFUSED TO BE CLEANED AND REPOSITIONED.EDUCATED ABOUT THE IMPORTANCE OF BEING CLEANED AND CHANGED. WILL CONTINUE TO MONITOR
[2021-10-26] VITALS: BP 98/48
[2021-10-26] MEDS: LORazepam 1 MG TAB PO PRN ×2 (00:16→04:34)
--- NOTE | 2021-10-26 00:16 | NUR ---
PATIENT COMPLAINS OF FEELING ANXIOUS. PRN MEDICATION GIVEN. WILL CONTINUE TO MONITOR.
--- NOTE | 2021-10-26 01:13 | NUR ---
PT RESTLESS AND KEEPS ON YELLING BUT WHEN I GO TO BEDSIDE PT IS TELLING ME SHE DOESN'T NEED ANY HELP. ALL PRECAUTIONS IN PLACE. CALL LIGHT WITHIN REACH.WILL CONTINUE TO MONITOR.
--- NOTE | 2021-10-26 03:31 | NUR ---
ROUNDS MADE. NO DISTRESS NOTED. RESPIRATIONS EQUAL AND UNLABORED. ALL PRECAUTIONS IN PLACE. WILL CONTINUE TO MONITOR.
[2021-10-26 04:00] VITALS: BP 93/39
--- NOTE | 2021-10-26 04:00 | NUR ---
PT STILL REFUSED TO BE CLEANED AND REPOSITIONED.EDUCATED ABOUT THE IMPORTANCE OF BEING CLEANED AND CHANGED. WILL CONTINUE TO MONITOR
--- NOTE | 2021-10-26 04:30 | NUR ---
PATIENT COMPLAINS OF FEELING ANXIOUS. PRN MEDICATION GIVEN. WILL CONTINUE TO MONITOR.
--- NOTE | 2021-10-26 06:35 | NUR ---
PT STABLE. NO ACUTE EVENTS THROUGHOUT THE NIGHT. PT IS NOT IN ANY DISTRESS. PT HAS NO COMPLAINS AT THIS TIME. ALL NEEDS ATTENDED. ALL PRECAUTIONS IN PLACE. WILL ENDORSE TO AM SHIFT NURSE.
[2021-10-26 07:20] LABS: ALBUMIN 1.1 g/dL (3.4-5.0); ANION GAP 16.4 (8-16); CARBON DIOXIDE 25.1 mmol/L (21-32); POTASSIUM 4.5 mmol/L (3.5-5.1); TOTAL BILIRUBIN 0.9 mg/dL (0.0-1.0)
--- NOTE | 2021-10-26 07:20 | NUR ---
ENDORSED TO AM SHIFT NURSE FOR CONTINUITY OF CARE. PT IS STABLE.
--- NOTE | 2021-10-26 07:33 | NUR ---
CRITICAL VALUES RECEIVED CR 4.2, BUN 50, CA 7.5. NOTIFIED
[2021-10-26 07:34] LABS: CREATININE 4.2 mg/dL (0.6-1.3)
[2021-10-26] MEDS ORDERED: oxyCODONE 10 MG TABER PO PRN ×2 (07:40→11:40)
[2021-10-26 08:00] VITALS: BP 99/40
[2021-10-26] MEDS: BLOOD GLUCOSE MONITORING 1 DEV DEV FS SCH ×4 (08:01→21:05)
--- NOTE | 2021-10-26 08:19 | NUR ---
RECEIVED REPORT FROM IT SPECIALIST NURSE. PT STABLE. NO S/S OF DISTRESS. BREATHING SYMMETRICAL. CALL LIGHT IN REACH. ALL SAFETY MEASURES IN PLACE
[2021-10-26 08:30] LABS: BASOPHILS # (AUTO) 0.1 K/uL (0.00-0.22); BASOPHILS % (AUTO) 0.4 % (0.0-2.0); EOSINOPHILS # (AUTO) 0.3 K/uL (0-0.4); EOSINOPHILS % (AUTO) 2.3 % (0.0-4.0); LYMPHOCYTES # (AUTO) 0.7 K/uL (2.5-16.5); LYMPHOCYTES % (AUTO) 5.6 % (20.5-51.1); MEAN CORPUSCULAR HEMOGLOBIN 27 pg (27-31); MEAN CORPUSCULAR HGB CONC 32 g/dL (33-37); MEAN CORPUSCULAR VOLUME 85.5 fL (80-94); MONOCYTES # (AUTO) 1.1 K/uL (0.8-1.0); MONOCYTES % (AUTO) 8.6 % (1.7-9.3); NEUTROPHILS # (AUTO) 10.5 K/uL (1.8-7.7); NEUTROPHILS % (AUTO) 83.1 % (42.2-75.2); PLATELET COUNT (AUTO) 208 K/uL (140-450); RED BLOOD CELL COUNT(AUTO) 2.28 MIL/uL (4.20-5.40); RED CELL DISTRIBUTION WIDTH 19.1 % (11.6-13.7); WHITE BLOOD COUNT (AUTO) 12.6 K/uL (4.8-10.8)
[2021-10-26 08:51] LABS: HEMATOCRIT 19.5 % (36-48); HEMOGLOBIN 6.2 g/dL (12.0-16.0)
--- NOTE | 2021-10-26 09:26 | NUR ---
PATIENT HAS BEEN SCREENED AND CATEGORIZED MODERATE NUTRITION RISK. PATIENT WILL BE SEEN WITHIN 3-5 DAYS OF ADMISSION. 10/27/21-10/29/21 REVIEWED BY ADITI STUART RD
[2021-10-26] MEDS: CALCIUM CARBONATE 500 MG TAB.CHEW PO SCH (09:59)
[2021-10-26] MEDS: BUMETANIDE 1 MG TAB PO SCH ×3 (09:59→17:52)
[2021-10-26] MEDS: ESCITALOPRAM 20 MG TAB PO SCH (09:59)
[2021-10-26] MEDS: carvediloL 6.25 MG TAB PO SCH ×2 (09:59→21:00)
[2021-10-26] MEDS: LEVOTHYROXINE 0.075 MG TAB PO SCH (09:59)
[2021-10-26] MEDS: DOCUSATE SODIUM 100 MG GELCAP PO SCH (09:59)
[2021-10-26] MEDS: FERROUS SULFATE 325 MG TABEC PO SCH ×2 (09:59→21:05)
[2021-10-26] MEDS: cefTRIAXone 2,000 MG in DEXTROSE 5% 100 ML IV SCH (10:05)
--- NOTE | 2021-10-26 10:22 | NUR ---
CRITICAL VALUES RECEIVED AT 0850 HGB 6.2, HCT 19.5, NOTIFIED. AWAITING PRBC'S FROM LAB
[2021-10-26] MEDS: oxyCODONE 10 MG TABER PO PRN (10:32)
--- NOTE | 2021-10-26 10:32 | NUR ---
PT COMPLAINED OF PAIN 06/16. PT MEDICATED PER MD ORDER. PT VERBALIZED UNDERSTANDING OF EDUCATION. NO S/S OF DISTRESS. CALL LIGHT IN REACH. ALL SAFETY MEASURES IN PLACE
[2021-10-26 12:00] VITALS: BP 100/53
--- NOTE | 2021-10-26 12:30 | NUR ---
PT. REFUSES WOUND CARE EVALUATIONS. SEEM PT. WITH PRIMARY RN AT BED SIDE, PT. WITH ABNORMAL VS, PRIMARY RN IS AWARE, COOLING MEASURES START, PT. START YELLING LOUDLY WHEN BLANKET REMOVE AND ATTEMPT TO ASSESSES PT. LEGS/SKIN. PT. SCREAM " DON'T TOUCH ME" RISKS AND BENEFITS EXPLAINED, PT YELL AGAIN" I DON'T WANT TO SEE YOU AGAIN." WILL START SKIN CARE PROTOCOL AT THIS TIME.
--- NOTE | 2021-10-26 13:01 | NUR ---
PT CLEANED AND CHANGED. PT TOLERATED. PT STABLE. NO S/S OF DISTRESS. CALL LIGHT IN REACH. ALL SAFETY MEASURES IN PLACE
[2021-10-26 16:00] VITALS: BP 89/41
--- NOTE | 2021-10-26 16:04 | NUR ---
PT RESTING IN BED, EYES CLOSED. PT STABLE. NO S/S OF DISTRESS. CALL LIGHT IN REACH. ALL SAFETY MEASURES IN PLACE
--- NOTE | 2021-10-26 18:15 | NUR ---
[facility] ADMINISTRATION STARTED. PT TOLERATING WELL. PT STABLE. NO S/S OF DISTRESS. CALL LIGHT IN REACH. ALL SAFETY MEASURES IN PLACE. NURSE AT BEDSIDE. WILL CONTINUE TO MONITOR
--- NOTE | 2021-10-26 19:21 | NUR ---
PT PRESENTS LYING IN BED ASLEEP W/ NO SIGNS OF RESPIRATORY DISTRESS. CURRENT SPO2 OF 94% ON ROOM AIR. BREATH SOUNDS EQUAL NO SOB OR WHEEZING. WILL CONTINUE TO MONITOR
--- NOTE | 2021-10-26 19:41 | NUR ---
PT ENDORSED TO DOCK WORKER. PT STABLE. NO S/S OF DISTRESS. CALL LIGHT IN REACH. ALL SAFETY MEASURES IN PLACE
--- NOTE | 2021-10-26 19:42 | NUR ---
RECEIVED REPORT FROM MORNING SHIFT NURSE. PATIENT RESTING IN BED WITH ONGOING BLOOD TRANSFUSION. NO ACUTE DISTRESS NOTED. RESPIRATION EVEN UNLABORED. ON ROOM AIR. NO COMPLAINTS OF PAIN AT THIS TIME. SAFETY MEASURES IN PLACE. CALL LIGHT WITHIN REACH. WILL CONTINUE TO MONITOR PT.
[2021-10-26 20:00] VITALS: BP 99/49
--- NOTE | 2021-10-26 21:05 | NUR ---
SCHEDULED DUE MEDS ADMINISTERED.
--- NOTE | 2021-10-26 21:05 | NUR ---
BLOOD SUGAR CHECKED WAS 128. NO COVERAGE GIVEN.
--- NOTE | 2021-10-26 21:27 | NUR ---
PATIENT BP-77/37 P-148 TO 150. NOTIFIED UYEN DUBOSE ORDERED EKG. ORDER NOTED AND CARRIED OUT.
--- NOTE | 2021-10-26 22:00 | NUR ---
BLOOD TRANSFUSION COMPLETED. NO ADVERSE REACTION NOTED AT THIS TIME.
[2021-10-27] VITALS: BP 82/45
[2021-10-27] MEDS: LORazepam 1 MG TAB PO PRN (00:30)
--- NOTE | 2021-10-27 00:30 | NUR ---
PATIENT KEEP ON SCREAMING, ATIVAN PRN GIVEN.
[2021-10-27] MEDS: HYDRAGUARD CREAM TP SCH ×2 (01:25→12:08)
--- NOTE | 2021-10-27 02:07 | NUR ---
CALLED TO DR. ABDULLAHI REGARDING LOW BP. AWAITING FOR ORDERS.
[2021-10-27] MEDS: NACL 0.9% 500 ML IV SCH ×2 (03:50→12:04)
[2021-10-27] MEDS ORDERED: NACL 0.9% 500 ML IV SCH (03:50)
--- NOTE | 2021-10-27 03:50 | NUR ---
DR. ABDULLAHI CALLED BACK WITH ORDER TO INFUSE 500 ML NS AT 60 MLS/HR. ORDER CARRIED OUT.
[2021-10-27 04:00] VITALS: BP 101/39
--- NOTE | 2021-10-27 04:25 | NUR ---
ASSISTED FOOD SERVICE TECHNICIAN IN CHANGING THE PATIENT.
[2021-10-27] MEDS: BLOOD GLUCOSE MONITORING 1 DEV DEV FS SCH ×4 (06:58→21:56)
--- NOTE | 2021-10-27 06:58 | NUR ---
BLOOD SUGAR CHECKED WAS 120, NO COVERAGE GIVEN.
[2021-10-27 07:14] LABS: EOSINOPHILS # (AUTO) 0.3 K/uL (0-0.4); EOSINOPHILS % (AUTO) 2.9 % (0.0-4.0); MEAN CORPUSCULAR VOLUME 86.3 fL (80-94); NEUTROPHILS # (AUTO) 9.3 K/uL (1.8-7.7)
[2021-10-27 07:18] LABS: ALBUMIN 1.1 g/dL (3.4-5.0); ANION GAP 14.1 (8-16); CARBON DIOXIDE 24.4 mmol/L (21-32); POTASSIUM 4.5 mmol/L (3.5-5.1)
[2021-10-27 07:20] LABS: BASOPHILS % (AUTO) 0.4 % (0.0-2.0); HEMATOCRIT 21.8 % (36-48); LYMPHOCYTES # (AUTO) 0.9 K/uL (2.5-16.5); LYMPHOCYTES % (AUTO) 7.3 % (20.5-51.1); MEAN CORPUSCULAR HEMOGLOBIN 28 pg (27-31); MEAN CORPUSCULAR HGB CONC 32 g/dL (33-37); MONOCYTES # (AUTO) 1.2 K/uL (0.8-1.0); NEUTROPHILS % (AUTO) 79.4 % (42.2-75.2); PLATELET COUNT (AUTO) 198 K/uL (140-450); RED BLOOD CELL COUNT(AUTO) 2.53 MIL/uL (4.20-5.40); RED CELL DISTRIBUTION WIDTH 19.2 % (11.6-13.7); WHITE BLOOD COUNT (AUTO) 11.7 K/uL (4.8-10.8)
--- NOTE | 2021-10-27 07:37 | NUR ---
ENDORSED PT TO AM NURSE FOR CONTINUITY OF CARE. PATIENT IS STABLE. NO SIGNS OF DISTRESS NOTED AT THIS TIME.
--- NOTE | 2021-10-27 07:40 | NUR ---
RECEIVED REPORT FROM FOUNDER / CEO NURSE FOR CONTINUITY OF CARE. PT IS AOX4, ABLE TO MAKE NEEDS KNOWN. PATIENT RESPIRATIONS EVEN AND UNLABORED. NO ACUTE DISTRESS NOTED. ON ROOM AIR. SKIN IS WARM, DRY, AND NON-INTACT. IV SITE ON LH 22G. INTACT AND PATENT. HAS RIJ JERMAINE CATH DIALYSIS ACCESS. NO COMPLAINTS OF PAIN AT THIS TIME. PLAN OF CARE DISCUSSED. SAFETY MEASURES IN PLACE. CALL LIGHT WITHIN REACH. WILL CONTINUE TO MONITOR PT.
[2021-10-27 08:00] VITALS: BP 97/61
[2021-10-27 08:22] LABS: CREATININE 4.7 mg/dL (0.6-1.3)
[2021-10-27] MEDS: CALCIUM CARBONATE 500 MG TAB.CHEW PO SCH (09:19)
[2021-10-27] MEDS: DOCUSATE SODIUM 100 MG GELCAP PO SCH (09:20)
[2021-10-27] MEDS: carvediloL 6.25 MG TAB PO SCH ×2 (09:20→21:00)
[2021-10-27] MEDS: ESCITALOPRAM 20 MG TAB PO SCH (09:20)
[2021-10-27] MEDS: BUMETANIDE 1 MG TAB PO SCH ×3 (09:20→16:30)
[2021-10-27] MEDS: LEVOTHYROXINE 0.075 MG TAB PO SCH (09:20)
[2021-10-27] MEDS: FERROUS SULFATE 325 MG TABEC PO SCH ×2 (09:21→21:55)
[2021-10-27] MEDS: cefTRIAXone 2,000 MG in DEXTROSE 5% 100 ML IV SCH (09:21)
--- NOTE | 2021-10-27 09:35 | NUR ---
ALL SCHEDULED MEDS GIVEN. PT IS STABLE. NO DISTRESS NOTED. WILL CONTINUE TO MONITOR.
--- NOTE | 2021-10-27 11:15 | NUR ---
DIALYSIS NURSE AT BEDSIDE.
--- NOTE | 2021-10-27 11:55 | NUR ---
OBTAINED 1 UNIT OF PRBC FROM BLOOD BANK. 1 UNIT WILL BE GIVEN DURING DIALYSIS. PT PRE-VS STABLE AT THE MOMENT. WILL CONTINUE TO MONITOR.
[2021-10-27 12:00] VITALS: BP 103/48
--- NOTE | 2021-10-27 12:07 | NUR ---
BLOOD GLUCOSE CHECK WAS 136. NO INSULIN COVERAGE NEEDED
--- NOTE | 2021-10-27 12:30 | NUR ---
PT COMPLETED BLOOD TRANSFUSION. PT IS STABLE. NO REACTION. CURRENTLY ON DIALYSIS TREATMENT. WILL CONTINUE TO MONITOR.
[2021-10-27] MEDS: oxyCODONE 10 MG TABER PO PRN (13:34)
--- NOTE | 2021-10-27 14:45 | NUR ---
PATIENT COMPLETED HD TREATMENT. 2.6L OUTPUT. PT IS STABLE. NO DISTRESS NOTED. WILL CONTINUE TO MONITOR.
[2021-10-27 16:00] VITALS: BP 102/70
--- NOTE | 2021-10-27 16:51 | NUR ---
BLOOD GLUCOSE CHECK WAS 101. NO INSULIN COVERAGE NEEDED.
--- NOTE | 2021-10-27 17:27 | NUR ---
DC PLANNING: THE PATIENT ADMITTED FROM [facility] WITH C/O BUTTOCK PAIN AND PIERSON. H/O SCHIZOAFFECTIVE DISORDER AND ESRD. THE PATIENT GOES TO [facility] DIALYSIS ON AND SAT AT 2:00 PM AND USES [facility]SPORT. CXR SHOWS MILD VASCULAR CONGESETION, WBC'S 14.5, LACTIC ACID 2.4, CRP 37.2. STARTED ON CEFEPIME AND VANCO, ADMITTED FOR MANAGEMENT OF CELLULITIS TO BUTTOCKS. WOUND CULTURE PENDING TO LEFT LEG WOUNDS. H&H ON 10/26 WAS 60-.2 & 19.5, 1 UNIT PRBC'S ORDERED. WBC'S TRENDING DOWN. THE PATIENT IS TOTAL CARE AT [facility], DC PLAN IS TO RETURN THERE WHEN CLINICALLY STABLE, WILL RESUME HD AT [facility]. CM WILL FOLLOW FOR NEEDS. Addendum: 10/29/21 at 1158 by Zoe Peters DC PLANNING: CM SPOKE WITH THE ATTENDING MD DR SARAVIA REGARDING CURRENT CLINICAL STATUS. PATIENT WITH POSITIVE CULTURES TO THE LEFT LEG (MDRO) AND URINE. DR LONDONO TO CONSULT FOR IV ABX AND MANAGEMENT, PATIENT ALSO DC'D HER JERMAINE CATH AND NEEDS TO HAVE THAT REPLACED. CM WILL FOLLOW FOR NEEDS. Addendum: 11/02/21 at 1419 by Zoe Peters CM DC PLANNING: DC PLANNING ORDER, CLINICAL PACKET SENT TO [facility]. CACHORRO CALLED DR ALVARADO, NO ANSWER, TEXTED HIM TO ASK IF PATIENT IS FOR DC TODAY. CM WILL FOLLOW FOR NEEDS. Addendum: 11/03/21 at 1115 by Zoe Peters DC PLANNING: CACHORRO SPOKE WITH [facility], WAITING FOR ROOM ASSIGNMENT CACHORRO ALSO SPOKE WITH DR LONDONO, PATIENT WILL NOT NEED CONTINUING ANTIBIOTICS. CACHORRO ALSO SPOKE WITH DR OSORIO, HE STATES THAT HE WILL SPEAK WITH [facility] REGARDING CHANGE IN SCHEDULE TO 4DAYS/WK. PATIENT BEING DIALYZED TODAY, CM WILL SET UP [facility]SPORT ONCE HD TIME TODAY IS ESTABLISHED. CM WILL FOLLOW FOR NEEDS. Addendum: 11/03/21 at 1644 by Zoe Peters CM DC PLANNING: PATIENT ACCEPTED TO ROOM [address] KING, ASKED FOR TRANSPORT AT 1730 THROUGH [facility] ([phone]), TRANSPORT COMPANY NOT YET CONFIRMED, CM ASKED THAT [facility] BE CALLED AFTER 1630 TO CONFIRM TRANSPORT TIME. AUTH NUMBER FORM [facility] IS [id number]. CM WILL FOLLOW FOR NEEDS. Addendum: 11/04/21 at 0908 by Zoe Peters CM DC PLANNING: CACHORRO SPOKE WITH KATHARINE AT [facility], PATIENT CAN COME TODAY, STAFFING ISSUE IS RESOLVED. CACHORRO SPOKE WITH [facility], NEW REQUEST FAXED FOR TRANSPORT TO [facility]. CM WILL FOLLOW FOR NEEDS. Addendum: 11/04/21 at 1050 by Zoe Peters CM DC PLANNING: CACHORRO SPOKE WITH [place], STATE THAT THE PATIENT WILL BE PICKED UP AT 11AM, UNABLE TO STATE NAME OF TRANSPORT COMPANY. CACHORRO NOTIFIED CHARGE NURSE MELISSA.
--- NOTE | 2021-10-27 19:34 | NUR ---
RECEIVED REPORT FROM AM NURSE. PATIENT IS SLEEPING. BREATHING REGULAR UNLABORED. ALL SAFETY PRECAUTIONS ARE IN PLACE. CALL LIGHT WITHIN REACH. WILL CONTINUE TO MONITOR.
[2021-10-27 20:00] VITALS: BP 101/52
[2021-10-27 21:20] LABS: HEMATOCRIT 25.2 % (36-48); HEMOGLOBIN 8.1 g/dL (12.0-16.0)
--- NOTE | 2021-10-27 21:55 | NUR ---
SCHEDULED DUE MEDS GIVEN ORDERED.
--- NOTE | 2021-10-27 21:56 | NUR ---
BLOOD SUGAR CHECKED WAS 111, NO COVERAGE GIVEN.
[2021-10-28] VITALS: BP 107/58
--- NOTE | 2021-10-28 00:15 | NUR ---
PATIENT IS SLEEPING. CHEST RISE AND FALL. CALL LIGHT WITHIN REACH.
[2021-10-28] MEDS: HYDRAGUARD CREAM TP SCH ×2 (01:00→12:33)
[2021-10-28 04:00] VITALS: BP 124/54
--- NOTE | 2021-10-28 04:15 | NUR ---
ASSISTED FORENSICS ANALYST IN CHANGING THE PATIENT.
[2021-10-28] MEDS: BLOOD GLUCOSE MONITORING 1 DEV DEV FS SCH ×4 (06:48→20:42)
[2021-10-28 07:33] LABS: BASOPHILS % (AUTO) 0.4 % (0.0-2.0); EOSINOPHILS # (AUTO) 0.2 K/uL (0-0.4); EOSINOPHILS % (AUTO) 2.1 % (0.0-4.0); HEMATOCRIT 24.3 % (36-48); HEMOGLOBIN 7.9 g/dL (12.0-16.0); LYMPHOCYTES # (AUTO) 0.8 K/uL (2.5-16.5); LYMPHOCYTES % (AUTO) 7.7 % (20.5-51.1); MEAN CORPUSCULAR HEMOGLOBIN 28 pg (27-31); MEAN CORPUSCULAR HGB CONC 33 g/dL (33-37); MEAN CORPUSCULAR VOLUME 87.2 fL (80-94); MONOCYTES # (AUTO) 1.1 K/uL (0.8-1.0); MONOCYTES % (AUTO) 11.5 % (1.7-9.3); NEUTROPHILS # (AUTO) 7.7 K/uL (1.8-7.7); NEUTROPHILS % (AUTO) 78.3 % (42.2-75.2); PLATELET COUNT (AUTO) 189 K/uL (140-450); RED BLOOD CELL COUNT(AUTO) 2.79 MIL/uL (4.20-5.40); RED CELL DISTRIBUTION WIDTH 19.1 % (11.6-13.7); WHITE BLOOD COUNT (AUTO) 9.8 K/uL (4.8-10.8)
--- NOTE | 2021-10-28 07:35 | NUR ---
ENDORSED PATIENT TO AM NURSE FOR CONTINUITY OF CARE. PT IS STABLE.
--- NOTE | 2021-10-28 07:40 | NUR ---
RECEIVED REPORT FROM PIG IRON LOADER NURSE FOR CONTINUITY OF CARE. PT IS AOX4, ABLE TO MAKE NEEDS KNOWN. PATIENT RESPIRATIONS EVEN AND UNLABORED. NO ACUTE DISTRESS NOTED. ON ROOM AIR. SKIN IS WARM, DRY, AND NON-INTACT. IV SITE ON LH 22G. INTACT AND PATENT. S/P HD AND 2 UNITS OF PRBC. HAS [facility] CATH DIALYSIS ACCESS. NO COMPLAINTS OF PAIN AT THIS TIME. PLAN OF CARE DISCUSSED. SAFETY MEASURES IN PLACE. CALL LIGHT WITHIN REACH. WILL CONTINUE TO MONITOR PT.
[2021-10-28 08:00] VITALS: BP 110/59
[2021-10-28 08:06] LABS: ALBUMIN 1.1 g/dL (3.4-5.0); ANION GAP 13.8 (8-16); CARBON DIOXIDE 25.1 mmol/L (21-32); CREATININE 3.6 mg/dL (0.6-1.3); POTASSIUM 3.9 mmol/L (3.5-5.1); TOTAL BILIRUBIN 1.1 mg/dL (0.0-1.0)
[2021-10-28] MEDS ORDERED: levoFLOXacin 750 MG TAB PO SCH (09:30)
--- NOTE | 2021-10-28 09:55 | NUR ---
SPOKE TO PT. REGARDING SKIN ASSESSMENT AND WOUND CARE EVALUATION, PT. REFUSED
[2021-10-28] MEDS: carvediloL 6.25 MG TAB PO SCH ×2 (09:56→20:43)
[2021-10-28] MEDS: ESCITALOPRAM 20 MG TAB PO SCH (09:56)
[2021-10-28] MEDS: BUMETANIDE 1 MG TAB PO SCH ×3 (09:56→18:29)
[2021-10-28] MEDS: POLYETHYLENE GLYCOL 17 GM/PKT PO PRN (09:57)
[2021-10-28] MEDS: CALCIUM CARBONATE 500 MG TAB.CHEW PO SCH (09:57)
[2021-10-28] MEDS: DOCUSATE SODIUM 100 MG GELCAP PO SCH (09:57)
[2021-10-28] MEDS: FERROUS SULFATE 325 MG TABEC PO SCH ×2 (09:58→20:43)
[2021-10-28] MEDS: LEVOTHYROXINE 0.075 MG TAB PO SCH (09:58)
--- NOTE | 2021-10-28 11:14 | NUR ---
PATIENT PULLED OUT RIJ JERMAINE CATHETER. INFORMED DR. SARAVIA AND DR. CRUZ REGARDING THE SITUATION. AWAITING FOR THEIR RESPONSE. PT IS STABLE AND VS HAS BEEN ASSESS. NO DISTRESS NOTED. WILL CONTINUE TO MONITOR.
--- NOTE | 2021-10-28 11:51 | NUR ---
10/28/21 RD INITIAL ASSESSMENT COMPLETED PLEASE REFER TO NUTRITION ASSESSMENT UNDER CARE ACTIVITY FOR ESTIMATED NUTRITIONAL NEEDS. 1. CONTINUE RENAL DIET TOLERATED 2. RECOMMEND NEPRO BID 3. RD TO FOLLOW-UP 3-5 DAYS, MODERATE RISK REVIEWED BY ADITI STUART RD
--- NOTE | 2021-10-28 11:54 | NUR ---
CONSULT WITH DR. ATUL OSORIO FOR REPLACEMENT OF JERMAINE CATH ORDERED
[2021-10-28 12:00] VITALS: BP 94/46
--- NOTE | 2021-10-28 12:45 | NUR ---
ALL SCHEDULED MEDS GIVEN. PT IS STABLE. NO DISTRESS NOTED. WILL CONTINUE TO MONITOR.
--- NOTE | 2021-10-28 14:40 | NUR ---
CHECKED ON PATIENT. PT IS STABLE. NO DISTRESS NOTED. WILL CONTINUE TO MONITOR.
[2021-10-28 16:00] VITALS: BP 90/49
--- NOTE | 2021-10-28 16:53 | NUR ---
PATIENT REMOVED IV CATH. WILL REINSERT NEW IV.
--- NOTE | 2021-10-28 19:50 | NUR ---
ENDORSED TO MOTORCYCLE SALES ASSOCIATE NURSE FOR CONTINUITY OF CARE. PT IS STABLE.
[2021-10-28 20:00] VITALS: BP 108/50
--- NOTE | 2021-10-28 20:00 | NUR ---
Received patient from AM shift nurse. Patient is AAOx2 confused and anxious. Patient is shouting that she has pain on her legs and when asked level of pain she reports 10/10. No s/s of distress is noted. Chest rise is even and unlabored. Patient is on continuos tele monitoring as ordered. Call light is within reach, bed is locked in the lowest position with bed rails up. Will perform nursing interventions for anxiety and pain control and monitor throughout the shift.
[2021-10-28] MEDS: oxyCODONE 10 MG TABER PO PRN (20:23)
[2021-10-28] MEDS ORDERED: MEROPENEM 500 MG in NACL 0.9% 50 ML IV SCH (21:00)
[2021-10-28] MEDS: LORazepam 1 MG TAB PO PRN (21:43)
--- NOTE | 2021-10-28 22:00 | NUR ---
Received call from pharmacy due to request Merrem IV from Dr. LOUIS. Pharmacy was requesting that Dr LONDONO from [facility] put in the Merrem order. Nurse contacted MD but no response will follow up and endorse to AM shift.
[2021-10-29] MEDS: HYDRAGUARD CREAM TP SCH ×2 (00:58→13:40)
[2021-10-29 04:00] VITALS: BP 96/82
[2021-10-29] MEDS: BLOOD GLUCOSE MONITORING 1 DEV DEV FS SCH ×4 (06:17→20:50)
[2021-10-29 07:12] LABS: BASOPHILS % (AUTO) 0.3 % (0.0-2.0); EOSINOPHILS # (AUTO) 0.4 K/uL (0-0.4); EOSINOPHILS % (AUTO) 3.7 % (0.0-4.0); HEMATOCRIT 22.2 % (36-48); HEMOGLOBIN 7.3 g/dL (12.0-16.0); LYMPHOCYTES # (AUTO) 0.9 K/uL (2.5-16.5); MEAN CORPUSCULAR HEMOGLOBIN 29 pg (27-31); MEAN CORPUSCULAR HGB CONC 33 g/dL (33-37); MEAN CORPUSCULAR VOLUME 86.9 fL (80-94); MONOCYTES # (AUTO) 1.2 K/uL (0.8-1.0); MONOCYTES % (AUTO) 12.2 % (1.7-9.3); NEUTROPHILS # (AUTO) 7.5 K/uL (1.8-7.7); NEUTROPHILS % (AUTO) 74.8 % (42.2-75.2); PLATELET COUNT (AUTO) 175 K/uL (140-450); RED BLOOD CELL COUNT(AUTO) 2.56 MIL/uL (4.20-5.40); RED CELL DISTRIBUTION WIDTH 19.3 % (11.6-13.7)
[2021-10-29 07:16] LABS: ANION GAP 11.3 (8-16); CARBON DIOXIDE 26.6 mmol/L (21-32); POTASSIUM 3.9 mmol/L (3.5-5.1); TOTAL BILIRUBIN 0.8 mg/dL (0.0-1.0)
[2021-10-29 07:17] LABS: CREATININE 4.1 mg/dL (0.6-1.3)
[2021-10-29 08:00] VITALS: BP 101/42
[2021-10-29] MEDS: BUMETANIDE 1 MG TAB PO SCH ×4 (09:00→17:00)
[2021-10-29] MEDS: carvediloL 6.25 MG TAB PO SCH ×2 (09:00→20:40)
[2021-10-29] MEDS: CALCIUM CARBONATE 500 MG TAB.CHEW PO SCH (09:47)
[2021-10-29] MEDS: DOCUSATE SODIUM 100 MG GELCAP PO SCH (09:47)
[2021-10-29] MEDS: oxyCODONE 10 MG TABER PO PRN ×2 (09:47→20:41)
[2021-10-29] MEDS: ESCITALOPRAM 20 MG TAB PO SCH (09:48)
[2021-10-29] MEDS: LEVOTHYROXINE 0.075 MG TAB PO SCH (09:48)
[2021-10-29] MEDS: FERROUS SULFATE 325 MG TABEC PO SCH ×2 (09:48→20:40)
[2021-10-29] MEDS: POLYETHYLENE GLYCOL 17 GM/PKT PO PRN (09:49)
[2021-10-29] MEDS: LORazepam 1 MG TAB PO PRN (11:52)
[2021-10-29 12:00] VITALS: BP 103/47
--- NOTE | 2021-10-29 15:30 | NUR ---
Notified Dr. Richards and Dr. Chamberlain unable to obtain peripheral IV access. Per Dr. Richards, ok to place midline IV.
--- NOTE | 2021-10-29 15:43 | NUR ---
Spoke to PICC nurse, nurse is fully booked and unable to place midline IV until tomorrow am.
[2021-10-29 16:00] VITALS: BP 110/47
--- NOTE | 2021-10-29 19:37 | NUR ---
RECEIVED REPORT FROM [facility] FOR CONTINUITY OF CARE.
[2021-10-29 20:00] VITALS: BP 104/50
--- NOTE | 2021-10-29 20:00 | NUR ---
RECEIVED BEDSIDE REPORT FROM DAY RN FOR CONTINUITY OF CARE . RECEIVED PT LAYING IN BED KEEPS ON SCREAMING ON THE TIME OF ROUNDS. PATIENT STATED THAT SHE IS IN PAIN AND OFFERED TO REPOSITION BUT REFUSED TO BE TOUCH AT THIS TIME. PER DAY RN LORI PT PULLED OUT HER IV AND ALSO HER DIALYSIS CATHETER AND MD IS AWARE. PT HAS AN ORDER TO PLACE A MIDLINE AND DIALYSIS CATHETER. PER DAY RN THEY TRIED TO PLACE ONE TODAY BUT PT REFUSED.OTHERWISE PT IS NOT IN ANY DISTRESS. VSS, AFEBRILE, SATING 97% ON RA. SR ON TELE MONITOR, HR-85. CALL LIGHT WITHIN REACH. WILL CONTINUE POC AND MONITORING.
[2021-10-29] MEDS: INSULIN LISPRO SLIDING SCALE 100 UNITS/ML VIAL SUBQ PRN (20:49)
--- NOTE | 2021-10-29 22:00 | NUR ---
ALL DUE MEDS GIVEN AND PT TOLERATED IT WELL. NO COMPLAIN FROM THE PT. NO ADVERSE DRUG REACTION NOTED. WILL CONTINUE TO OBSERVE.
--- NOTE | 2021-10-29 22:25 | NUR ---
PT SITTING UP IN BED DENIES SOB W/ NO DISTRESS NOTED ON RA PT ASKED ME TO LEAVE AND REFUSED TO OBTAIN VITALS WILL CONTINUE TO MONITOR
--- NOTE | 2021-10-30 | NUR ---
PT VITAL SIGNS STABLE, AFEBRILE, SATING 98% ON RA. PT KEEPS ON TAKING OFF HER TELE MONITOR AND REFUSED TO PUT IT BACK. WILL TRY AGAIN LATER. NOT IN ANY DISTRESS AND NO COMPLAIN AT THIS TIME. CALL LIGHT WITHIN REACH. WILL CONTINUE OBSERVATION.
[2021-10-30 00:33] VITALS: BP_SYST 102; BP_SYST 104; BP_DIAS 50; BP_DIAS 56
[2021-10-30] MEDS: HYDRAGUARD CREAM TP SCH ×2 (00:33→13:00)
[2021-10-30] MEDS: LORazepam 1 MG TAB PO PRN (02:21)
--- NOTE | 2021-10-30 02:25 | NUR ---
PT STILL KEEPS ON SCREAMING. MEDICATED WITH ATIVAN ORDERED PRN FOR ANXIETY. WILL CONTINUE TO MONITOR AND OBSERVE.
[2021-10-30 04:00] VITALS: BP 106/58
--- NOTE | 2021-10-30 04:00 | NUR ---
PT VITAL SIGNS STABLE, AFEBRILE, SATING 96% ON RA. PT KEEPS ON TAKING OFF HER TELE MONITOR AND REFUSED TO PUT IT BACK. WILL TRY AGAIN LATER. NOT IN ANY DISTRESS AND NO COMPLAIN AT THIS TIME. CALL LIGHT WITHIN REACH. WILL CONTINUE OBSERVATION.
[2021-10-30] MEDS: LINEZOLID 600 MG TAB PO SCH ×2 (05:29→18:06)
--- NOTE | 2021-10-30 06:00 | NUR ---
NO ACUTE EVENT THROUGHOUT THE NIGHT. PATIENT STABLE NO SIGN AND SYMPTOMS OF DISTRESS NOTED. NO COMPLAIN AT THIS TIME. ALL NEEDS ATTENDED. CALL LIGHT WITHIN REACH. WILL ENDORSE THE PATIENT TO THE ONCOMING RN FOR CONTINUITY OF CARE.
[2021-10-30 06:43] LABS: BASOPHILS % (AUTO) 0.4 % (0.0-2.0); EOSINOPHILS # (AUTO) 0.3 K/uL (0-0.4); EOSINOPHILS % (AUTO) 2.7 % (0.0-4.0); HEMATOCRIT 24.4 % (36-48); HEMOGLOBIN 7.9 g/dL (12.0-16.0); LYMPHOCYTES # (AUTO) 1.2 K/uL (2.5-16.5); LYMPHOCYTES % (AUTO) 11.3 % (20.5-51.1); MEAN CORPUSCULAR HEMOGLOBIN 28 pg (27-31); MEAN CORPUSCULAR HGB CONC 33 g/dL (33-37); MEAN CORPUSCULAR VOLUME 86.7 fL (80-94); MONOCYTES # (AUTO) 1.6 K/uL (0.8-1.0); MONOCYTES % (AUTO) 14.6 % (1.7-9.3); NEUTROPHILS # (AUTO) 7.6 K/uL (1.8-7.7); PLATELET COUNT (AUTO) 207 K/uL (140-450); RED BLOOD CELL COUNT(AUTO) 2.81 MIL/uL (4.20-5.40); RED CELL DISTRIBUTION WIDTH 19.2 % (11.6-13.7); WHITE BLOOD COUNT (AUTO) 10.7 K/uL (4.8-10.8)
[2021-10-30] MEDS: BLOOD GLUCOSE MONITORING 1 DEV DEV FS SCH ×4 (06:57→21:50)
[2021-10-30] MEDS: INSULIN LISPRO SLIDING SCALE 100 UNITS/ML VIAL SUBQ PRN (06:58)
[2021-10-30 07:14] LABS: ALBUMIN 1.3 g/dL (3.4-5.0); ANION GAP 13.4 (8-16); CARBON DIOXIDE 25.7 mmol/L (21-32); POTASSIUM 4.1 mmol/L (3.5-5.1)
[2021-10-30 07:22] LABS: CREATININE 4.6 mg/dL (0.6-1.3)
[2021-10-30 08:00] VITALS: BP 107/68
--- NOTE | 2021-10-30 08:03 | NUR ---
ENDORSED PT TO DAY RN FOR CONTINUITY OF CARE. PATIENT STABLE. SIGNING OFF.
--- NOTE | 2021-10-30 08:05 | NUR ---
RECEIVED REPORT FROM FACILITIES AND GROUNDS DIRECTOR NURSE FOR CONTINUITY OF CARE. PT IS AOX3. PATIENT BREATHING IS EVEN AND UNLABORED. NO ACUTE DISTRESS NOTED. ON ROOM AIR. NO IV SITE AND NO HD CATH. NURSE STATED PT PULLED THEM OUT. WILL GET A JERMAINE CATH DIALYSIS ACCESS INSERTED TODAY. NO COMPLAINTS OF PAIN AT THIS TIME. PLAN OF CARE DISCUSSED. SAFETY MEASURES IN PLACE. CALL LIGHT WITHIN REACH.
[2021-10-30] MEDS ORDERED: levoFLOXacin 500 MG TAB PO SCH (09:00)
[2021-10-30] MEDS: EPOETIN ALFA-EPBX 10,000 UNITS/ML VIAL SUBQ SCH (10:17)
[2021-10-30] MEDS: CALCIUM CARBONATE 500 MG TAB.CHEW PO SCH (10:17)
[2021-10-30] MEDS: FERROUS SULFATE 325 MG TABEC PO SCH ×2 (10:17→21:50)
[2021-10-30] MEDS: carvediloL 6.25 MG TAB PO SCH ×2 (10:18→21:00)
[2021-10-30] MEDS: ESCITALOPRAM 20 MG TAB PO SCH (10:18)
[2021-10-30] MEDS: DOCUSATE SODIUM 100 MG GELCAP PO SCH (10:18)
[2021-10-30] MEDS: LEVOTHYROXINE 0.075 MG TAB PO SCH (10:19)
[2021-10-30] MEDS: BUMETANIDE 1 MG TAB PO SCH ×3 (10:19→17:00)
--- NOTE | 2021-10-30 11:30 | NUR ---
BLOOD SUGAR AT 108. NO COVERAGE NEEDED.
[2021-10-30 12:00] VITALS: BP 111/69
--- NOTE | 2021-10-30 12:30 | NUR ---
JERMAINE CATH INSERTED INTO RIJ.
--- NOTE | 2021-10-30 14:00 | NUR ---
PT. REFUSES WOUND CARE EVALUATIONS. SEEN PATIENT WITH PRIMARY RN AND MID WIFE AT BEDSIDE. PATIENT STARTS YELLING LOUDLY WHEN TRYING TO TAKE BLANKET OFF TO ASSESS PATIENT. YELLS "WHAT ARE YOU DOING? DON'T TOUCH ME. GET OUT OF HERE." REINFORCED PATIENT EDUCATION ON IMPORTANCE OF SKIN ASSESSMENT AND MANAGMENET CARE TO PREVENT WORSENING OF ANY WOUNDS. PATIENT VERBALIZED UNDERSTANDING, BUT CONTINUES TO REFUSE.
--- NOTE | 2021-10-30 15:00 | NUR ---
DIALYSIS STARTED. ORDERED 2 UNITS PRBC FROM LAB. WILL BE GIVEN SOON RECEIVED AND AVAILABLE.
[2021-10-30 16:00] VITALS: BP 105/61
--- NOTE | 2021-10-30 19:30 | NUR ---
RECEIVED BEDSIDE REPORT FROM DAY SHIFT RN FOR CONTINUITY OF CARE. PT IS GOING THROUGH HD. PT IS NOT IN ANY DISTRESS. CALL LIGHT WITHIN REACH. ALL SAFETY MEASURES TAKEN. WILL CONTINUE TO MONITOR THE PT.
--- NOTE | 2021-10-30 19:30 | NUR ---
ENDORSED PT TO GRADUATE ASSISTANT NURSE. PT STILL FINISHING DIALYSIS. LAB STILL HAS NO O NEG BLOOD FOR PT. WILL BE GIVEN SOON IS AVAILABLE. PT IS STABLE.
--- NOTE | 2021-10-30 19:40 | NUR ---
PATIENT COMPLETED HD TREATMENT. 1.4L OUTPUT. PT IS STABLE. NO DISTRESS NOTED. WILL CONTINUE TO MONITOR.
[2021-10-30 20:00] VITALS: BP 87/41
--- NOTE | 2021-10-30 20:30 | NUR ---
GAVE A CALL BACK TO [facility] FOR AN UPDATE ON THE PT. [facility] WAS UPDATED ON THE PLAN OF CARE.
--- NOTE | 2021-10-30 23:50 | NUR ---
PT IS SLEEPING IN BED. PT IS NOT IN ANY DISTRESS AND SHOWS NO SIGNS OF LABORED BREATHING. CALL LIGHT WITHIN REACH. ALL SAFETY MEASURES TAKEN. WILL CONTINUE TO MONITOR THE PT.
[2021-10-31] VITALS: BP 91/42
[2021-10-31] MEDS: HYDRAGUARD CREAM TP SCH ×2 (01:00→13:00)
--- NOTE | 2021-10-31 02:30 | NUR ---
PT IS SLEEPING IN BED. PT IS NOT IN ANY DISTRESS AND SHOWS NO SIGS OF LABORED BREATHING. CALL LIGHT WITHIN REACH. ALL SAFETY MEASURES TAKEN. WILL CONTINUE TO MONITOR THE PT.
[2021-10-31 04:00] VITALS: BP 85/44
[2021-10-31] MEDS: LINEZOLID 600 MG TAB PO SCH ×3 (05:27→17:48)
--- NOTE | 2021-10-31 07:20 | NUR ---
ENDORSED PT TO DAY SHIFT NURSE FOR CONTINUITY OF CARE. PT IS STABLE.
--- NOTE | 2021-10-31 07:25 | NUR ---
Received report from pm nurse Kennedy. Patient resting in bed, awake, no signs of distress, respirations even & nonlabored. Call light within reach.
[2021-10-31] MEDS: BLOOD GLUCOSE MONITORING 1 DEV DEV FS SCH ×4 (07:37→20:28)
[2021-10-31] MEDS: LORazepam 1 MG TAB PO PRN (07:54)
--- NOTE | 2021-10-31 07:55 | NUR ---
Lorazepam administered due to agitation as e/b persistent yelling for no apparent reason. Asked patient what is making her anxious, pt states "I don't know." Reassurance provided. Redirected behavior with TV. Call light within reach.
[2021-10-31 08:00] VITALS: BP 101/42
[2021-10-31] MEDS: carvediloL 6.25 MG TAB PO SCH ×2 (08:13→20:28)
[2021-10-31] MEDS: BUMETANIDE 1 MG TAB PO SCH ×3 (08:13→17:00)
[2021-10-31] MEDS: CALCIUM CARBONATE 500 MG TAB.CHEW PO SCH (09:00)
[2021-10-31] MEDS: LEVOTHYROXINE 0.075 MG TAB PO SCH (10:21)
[2021-10-31] MEDS: FERROUS SULFATE 325 MG TABEC PO SCH ×2 (10:21→20:29)
[2021-10-31] MEDS: ESCITALOPRAM 20 MG TAB PO SCH (10:21)
[2021-10-31] MEDS: DOCUSATE SODIUM 100 MG GELCAP PO SCH (10:21)
[2021-10-31] MEDS: GABAPENTIN 100 MG CAP PO PRN (10:22)
--- NOTE | 2021-10-31 11:33 | NUR ---
Spoke to Dr Chamberlain to clarify blood transfusion order. Per physician, no need for blood transfusion without dialysis. New order: stat CBC. Order noted and carried out.
[2021-10-31 11:46] LABS: EOSINOPHILS # (AUTO) 0.2 K/uL (0-0.4); HEMOGLOBIN 7.2 g/dL (12.0-16.0); NEUTROPHILS # (AUTO) 6.9 K/uL (1.8-7.7)
[2021-10-31 11:52] LABS: BASOPHILS # (AUTO) 0.1 K/uL (0.00-0.22); BASOPHILS % (AUTO) 0.7 % (0.0-2.0); EOSINOPHILS % (AUTO) 1.7 % (0.0-4.0); HEMATOCRIT 22.2 % (36-48); LYMPHOCYTES % (AUTO) 10.9 % (20.5-51.1); MEAN CORPUSCULAR HEMOGLOBIN 28 pg (27-31); MEAN CORPUSCULAR HGB CONC 32 g/dL (33-37); MEAN CORPUSCULAR VOLUME 86.9 fL (80-94); MONOCYTES # (AUTO) 1.2 K/uL (0.8-1.0); NEUTROPHILS % (AUTO) 73.7 % (42.2-75.2); PLATELET COUNT (AUTO) 183 K/uL (140-450); RED BLOOD CELL COUNT(AUTO) 2.55 MIL/uL (4.20-5.40); RED CELL DISTRIBUTION WIDTH 19.7 % (11.6-13.7); WHITE BLOOD COUNT (AUTO) 9.3 K/uL (4.8-10.8)
[2021-10-31 12:00] VITALS: BP 101/42
--- NOTE | 2021-10-31 14:30 | NUR ---
Received telephone call from patient's sister Ml requesting for updates on patient's condition. Informed her of patient's current status. Also informed her that patient has been refusing wound assessment, and repositioning despite explaining risks and benefits. Ml verbalized understanding and states she might visit tomorrow to assist with care.
[2021-10-31 16:00] VITALS: BP 105/44
[2021-10-31] MEDS: oxyCODONE 10 MG TABER PO PRN (17:01)
--- NOTE | 2021-10-31 18:00 | NUR ---
Sponge bath provided to patient with 4-person total assist. Patient tolerated it well.
[2021-10-31 20:00] VITALS: BP 105/44
--- NOTE | 2021-10-31 20:47 | NUR ---
Assumed care. Pt has habitual screaming. Checked on pt. She has scratched the dressing off of the RIJ HD catheter. Pt has been educated on how, and why she should not pull out the catheter. The consequences of pulling it out have been explained to the patient. She has verbalized understanding. She dressing has been changed. Will continue to monitor.
--- NOTE | 2021-10-31 20:56 | NUR ---
Carvedilol held BP = 105/44.
[2021-11-01] MEDS: HYDRAGUARD CREAM TP SCH ×2 (01:00→12:42)
--- NOTE | 2021-11-01 03:17 | NUR ---
PT LAYING IN BED W/ NO SIGNS OF RESPIRATORY DISTRESS SATING 92% ON RA. BS CLEAR/DIMINISHED THROUGHOUT. PT STATES SHES FEELS OKAY AND DENIES SOB. WILL CONTINUE TO MONITOR.
[2021-11-01 04:00] VITALS: BP 90/40
[2021-11-01] MEDS: LINEZOLID 600 MG TAB PO SCH ×2 (06:02→17:13)
[2021-11-01] MEDS: BLOOD GLUCOSE MONITORING 1 DEV DEV FS SCH ×4 (07:28→20:59)
--- NOTE | 2021-11-01 07:28 | NUR ---
In no acute distress. At 0200 we obtained a non behavior restraints. She is a danger to self in that she keapt on pullling at the dialysis catheter, and she has a history of pulling it out at one point in time. Restraints are in place. Bed bath has been given. She had a large black soft stool. She required 4 people to help with turning. Will endorse care to the oncoming RN.
[2021-11-01 08:00] VITALS: BP 91/42
--- NOTE | 2021-11-01 08:04 | NUR ---
RECEIVED REPORT FROM EQUIPMENT RECORDS SUPERVISOR NURSE FOR CONTINUITY OF CARE. PT IS STABLE. PLAN OF CARE DISCUSSED.
[2021-11-01] MEDS: BUMETANIDE 1 MG TAB PO SCH ×3 (09:00→17:14)
[2021-11-01] MEDS: carvediloL 6.25 MG TAB PO SCH ×2 (09:00→21:00)
[2021-11-01] MEDS: ESCITALOPRAM 20 MG TAB PO SCH (09:18)
[2021-11-01] MEDS: FERROUS SULFATE 325 MG TABEC PO SCH ×2 (09:18→22:39)
[2021-11-01] MEDS: DOCUSATE SODIUM 100 MG GELCAP PO SCH (09:18)
[2021-11-01] MEDS: CALCIUM CARBONATE 500 MG TAB.CHEW PO SCH (09:19)
[2021-11-01] MEDS: LEVOTHYROXINE 0.075 MG TAB PO SCH (09:19)
[2021-11-01 09:22] LABS: ANION GAP 13.9 (8-16); CARBON DIOXIDE 24.3 mmol/L (21-32); POTASSIUM 4.2 mmol/L (3.5-5.1)
[2021-11-01 09:29] LABS: CREATININE 4.5 mg/dL (0.6-1.3)
--- NOTE | 2021-11-01 09:29 | NUR ---
PT WAS NOT GIVEN BUMEX AND CARVEDILOL DUE TO DECREASED BP OF 91/41. DR. SARAVIA AT BEDSIDE, AWARE THAT MEDICATION WAS NOT GIVEN AND AGREED.
[2021-11-01 09:38] LABS: BASOPHILS % (AUTO) 0.3 % (0.0-2.0); EOSINOPHILS # (AUTO) 0.2 K/uL (0-0.4); EOSINOPHILS % (AUTO) 1.8 % (0.0-4.0); HEMATOCRIT 21.8 % (36-48); HEMOGLOBIN 7.2 g/dL (12.0-16.0); LYMPHOCYTES % (AUTO) 10.5 % (20.5-51.1); MEAN CORPUSCULAR HEMOGLOBIN 29 pg (27-31); MEAN CORPUSCULAR HGB CONC 33 g/dL (33-37); MEAN CORPUSCULAR VOLUME 86.5 fL (80-94); MONOCYTES # (AUTO) 1.7 K/uL (0.8-1.0); MONOCYTES % (AUTO) 16.6 % (1.7-9.3); NEUTROPHILS # (AUTO) 7.1 K/uL (1.8-7.7); NEUTROPHILS % (AUTO) 70.8 % (42.2-75.2); PLATELET COUNT (AUTO) 176 K/uL (140-450); RED BLOOD CELL COUNT(AUTO) 2.52 MIL/uL (4.20-5.40); RED CELL DISTRIBUTION WIDTH 19.4 % (11.6-13.7)
--- NOTE | 2021-11-01 12:43 | NUR ---
BP WAS 96/45 AND BUMEX WAS HELD INSTRUCTED BY DR. SARAVIA. DR. SARAVIA STATED TO HOLD MED IF SYSTOLIC IS BELOW 100. WILL CONTINUE TO MONITOR.
--- NOTE | 2021-11-01 15:30 | NUR ---
SPOKE TO STEPAN SHAVER AND INFORMED HER THAT HD IS SCHEDULED TODAY WITH TRANSFUSION OF 2 UNITS PRBC. ONE UNIT PRBC AVAILABLE. SIVAKUMAR CONFIRMED DIALYSIS TODAY.
[2021-11-01 16:00] VITALS: BP 111/49
[2021-11-01] MEDS: oxyCODONE 10 MG TABER PO PRN (17:15)
--- NOTE | 2021-11-01 17:16 | NUR ---
PT STATES PAIN AT A SCALE OF 9/10 IN HER FEET AND ALL OVER BODY. PT WAS GIVEN OXYCODONE FOR PAIN. BP STABLE PRIOR TO ADMINISTRATION OF MEDICATION.
--- NOTE | 2021-11-01 17:45 | NUR ---
HD NURSE AT BEDSIDE.
--- NOTE | 2021-11-01 18:25 | NUR ---
BLOOD TRANSFUSION STARTED BY HD NURSE. HD NURSE AT BEDSIDE MONITORING PT. VERIFIED BY SECOND RN, HECTOR. PT STABLE AT THIS TIME.
--- NOTE | 2021-11-01 18:37 | NUR ---
PT COUGHED UP A QUARTER SIZED BLOOD CLOT. NOTED BY HD NURSE. REPORTED THIS FINDING TO DR. SARAVIA. WILL WAIT FOR RESPONSE.
--- NOTE | 2021-11-01 19:00 | NUR ---
1 UNIT OF BLOOD TRANSFUSED BY HD NURSE. BLOOD TRANSFUSION COMPLETED. NO ADVERSE REACTIONS.
--- NOTE | 2021-11-01 19:28 | NUR ---
ENDORSED PT TO BIRD CAGE ASSEMBLER NURSE FOR CONTINUITY OF CARE. PT IS STABLE AT THIS TIME. PLAN OF CARE DISCUSSED. STILL NO RESPONSE FROM DR. SARAVIA. ENDORSED INFORMATION TO BIRD CAGE ASSEMBLER NURSE.
--- NOTE | 2021-11-01 19:53 | NUR ---
Assumed care. She is currently being dialyzed. She is sleeping calmly. Heparin fro the dialysis catheter has been given to the dialysis nurse already. Bed is in a low position. Call light within reach. Will continue to monitor.
--- NOTE | 2021-11-01 20:24 | NUR ---
PT LAYING IN BED W/ NO SIGNS OF RESPIRATORY DISTRESS SATING 98% ON RA. BS CLEAR/DIMINISHED THROUGHOUT. PT CURRENTLY RECEIVING DIALYSIS. WILL CONTINUE TO MONITOR.
--- NOTE | 2021-11-01 22:39 | NUR ---
HD is done. tolerated well. 2 liters off. She is sleeping calmly presently. Will continue to monitor.
[2021-11-02] MEDS: HYDRAGUARD CREAM TP SCH ×2 (02:10→15:15)
[2021-11-02 04:00] VITALS: BP 102/46
[2021-11-02] MEDS: BLOOD GLUCOSE MONITORING 1 DEV DEV FS SCH ×4 (06:19→21:00)
[2021-11-02] MEDS: LINEZOLID 600 MG TAB PO SCH ×2 (06:19→18:25)
--- NOTE | 2021-11-02 07:40 | NUR ---
REPORT RECEIVED FROM PM SHIFT RN FOR CONTINUITY OF CARE. PT. STABLE, NOT IN DISTRESS. WILL CONTINUE TO MONITOR THE PT.
[2021-11-02 08:00] VITALS: BP 102/46
[2021-11-02] MEDS: carvediloL 6.25 MG TAB PO SCH ×2 (09:00→22:33)
--- NOTE | 2021-11-02 09:00 | NUR ---
PT.'S FAMILY SISTER CALL ED AND SAID SHE DOESN'T WANT GO TO [facility]. SHE WOULD LIKE TO TRANSFFER THE PT. IN [place] BECAUSE OF DIALYSIS TO NOTIFY CM. NOTIFIED CM
--- NOTE | 2021-11-02 09:30 | NUR ---
PT. LYING IN THE BED,NO ANY SIGNS OF DISTRESS NOTED.STABLE. BED IN LOW POSITION. CALL LIGHT RAFA WITHIN REACH.WILL CONTINUE TO MONITOR THE PT.
[2021-11-02] MEDS: POLYETHYLENE GLYCOL 17 GM/PKT PO PRN (09:41)
[2021-11-02] MEDS: LEVOTHYROXINE 0.075 MG TAB PO SCH (09:41)
[2021-11-02] MEDS: BUMETANIDE 1 MG TAB PO SCH ×3 (09:42→18:27)
[2021-11-02] MEDS: DOCUSATE SODIUM 100 MG GELCAP PO SCH (09:42)
[2021-11-02] MEDS: FERROUS SULFATE 325 MG TABEC PO SCH ×2 (09:43→22:32)
[2021-11-02] MEDS: ESCITALOPRAM 20 MG TAB PO SCH (09:43)
[2021-11-02] MEDS: CALCIUM CARBONATE 500 MG TAB.CHEW PO SCH (09:44)
--- NOTE | 2021-11-02 11:00 | NUR ---
PT. STABLE. RESTING IN THE BED. BREATHINGS EVEN AND NORMAL. CALL LIGHT WITHIN REACH. WILL CONTINUE TO MONITOR THE PT.
[2021-11-02] MEDS: EPOETIN ALFA-EPBX 10,000 UNITS/ML VIAL SUBQ SCH (11:36)
--- NOTE | 2021-11-02 14:00 | NUR ---
PT. COMFORTABLY SLEEPING IN THE BED WITHOUT SIGNS OF DISTRESS. BREATHINGS EVEN AND UNLABORED. SAFETY MEASURES IN PLACED. WILL CONTINUE TO MONITOR THE PT.
--- NOTE | 2021-11-02 16:30 | NUR ---
PT. RESTING IN THE BED NO ANY ACUTE DISTRESS NOTED ALL SAFETY MEASURES IN PLACED. WILL CONTINUE TO MONITOR THE PT.
--- NOTE | 2021-11-02 19:05 | NUR ---
PT. STABLE RESTING IN THE BED WITH NO DISTRESS NOTED. WILL ENDORSE REPORT TO PM SHIFT RN.
[2021-11-02 23:44] VITALS: BP 121/64
[2021-11-03] MEDS: GABAPENTIN 100 MG CAP PO PRN ×2 (00:43→13:39)
[2021-11-03] MEDS: HYDRAGUARD CREAM TP SCH ×2 (01:00→13:24)
[2021-11-03 04:00] VITALS: BP 114/63
--- NOTE | 2021-11-03 05:24 | NUR ---
patient vitals are stable . breathing is even and unlabored. she stated that she had pain 7 on scale 0-10. gabapentin was given. comfort and safety measures are provided. the patient is clean and sleeps comfortable in her bed
[2021-11-03] MEDS: LINEZOLID 600 MG TAB PO SCH ×2 (06:45→17:35)
[2021-11-03] MEDS: BLOOD GLUCOSE MONITORING 1 DEV DEV FS SCH ×4 (06:45→21:56)
[2021-11-03 07:01] LABS: BASOPHILS % (AUTO) 0.4 % (0.0-2.0); EOSINOPHILS # (AUTO) 0.2 K/uL (0-0.4); EOSINOPHILS % (AUTO) 1.7 % (0.0-4.0); HEMATOCRIT 24.7 % (36-48); HEMOGLOBIN 7.8 g/dL (12.0-16.0); LYMPHOCYTES # (AUTO) 0.9 K/uL (2.5-16.5); LYMPHOCYTES % (AUTO) 8.3 % (20.5-51.1); MEAN CORPUSCULAR HEMOGLOBIN 28 pg (27-31); MEAN CORPUSCULAR HGB CONC 32 g/dL (33-37); MEAN CORPUSCULAR VOLUME 87.9 fL (80-94); MONOCYTES # (AUTO) 1.2 K/uL (0.8-1.0); MONOCYTES % (AUTO) 10.4 % (1.7-9.3); NEUTROPHILS # (AUTO) 8.9 K/uL (1.8-7.7); NEUTROPHILS % (AUTO) 79.2 % (42.2-75.2); PLATELET COUNT (AUTO) 175 K/uL (140-450); RED BLOOD CELL COUNT(AUTO) 2.81 MIL/uL (4.20-5.40); RED CELL DISTRIBUTION WIDTH 19.8 % (11.6-13.7); WHITE BLOOD COUNT (AUTO) 11.3 K/uL (4.8-10.8)
--- NOTE | 2021-11-03 07:41 | NUR ---
RECEIVED PT FROM NIGHT RN, PT IS AWAKE AND LYING ON THE BED, SHOUTING, ON RA, SAFETY AND FALL PRECAUTION ENFORCED, RESTRAINT IS STILL IN PLACE, PT HAS A RT IJ IN PLACE WITH PIGTAIL, ON RA AND NO SIGN OF DISTRESS NOTED, WILL CONTINUE TO MONITOR PT.
[2021-11-03 07:47] LABS: ANION GAP 13.1 (8-16); CARBON DIOXIDE 24.7 mmol/L (21-32); POTASSIUM 3.8 mmol/L (3.5-5.1)
[2021-11-03 08:00] VITALS: BP 103/50
[2021-11-03 08:37] LABS: CREATININE 4.3 mg/dL (0.6-1.3)
[2021-11-03] MEDS: carvediloL 6.25 MG TAB PO SCH ×2 (09:00→21:23)
[2021-11-03] MEDS: BUMETANIDE 1 MG TAB PO SCH ×4 (09:00→17:00)
--- NOTE | 2021-11-03 10:15 | NUR ---
PT WAS ASKED IF SHE WANTS TO BE FED AND PT RESPONDED THAT SHE DOES NOT WANT TO EAT AND JUST ASKED FOR WATER.
[2021-11-03] MEDS: FERROUS SULFATE 325 MG TABEC PO SCH ×2 (10:45→21:23)
[2021-11-03] MEDS: LEVOTHYROXINE 0.075 MG TAB PO SCH (10:46)
[2021-11-03] MEDS: CALCIUM CARBONATE 500 MG TAB.CHEW PO SCH (10:46)
[2021-11-03] MEDS: ESCITALOPRAM 20 MG TAB PO SCH (10:47)
[2021-11-03] MEDS: DOCUSATE SODIUM 100 MG GELCAP PO SCH (10:47)
--- NOTE | 2021-11-03 11:20 | NUR ---
PT'S SISTER CALLED AND IS COMPLAINING AND SAIT THAT SHE HAD BEEN TELLING THE PREVIOUS RNS TO LET CM KNOW THAT SHE DOES NOT WANT THE PT TO GO BACK TO [facility]. SISTER WAS INFORMED THAT CM WILL BE INFORMED.
--- NOTE | 2021-11-03 11:42 | NUR ---
SPOKE TO [facility] NOW AND SAID THAT SHE JUST SPOKE TO PT'S SISTER AND SISTER IS AWARE THAT PT IS GOING BACK TO [facility].
--- NOTE | 2021-11-03 12:30 | NUR ---
DIALYSIS WAS STARTED NOW.
[2021-11-03] MEDS ORDERED: LINE600T10 PO (15:12)
--- NOTE | 2021-11-03 15:45 | NUR ---
DIALYSIS WAS FINISHED NOW AND 1.6 OUTPUT.
--- NOTE | 2021-11-03 15:49 | NUR ---
11/03/21 RD F/U COMPLETED PLEASE REFER TO NUTRITION ASSESSMENT UNDER CARE ACTIVITY FOR ESTIMATED NUTRITIONAL NEEDS. 1. CONTINUE RENAL DIET TOLERATED 2. PROVIDE FDI ED 3. RECOMMEND NEPRO TID D/T POOR PO INTAKE 4. RD TO FOLLOW-UP 3-5 DAYS, MODERATE RISK ADITI STUART, RD
--- NOTE | 2021-11-03 18:00 | NUR ---
PT WAS CLEANED WITH THE HELP OF 5 PERSON ASSIST.
--- NOTE | 2021-11-03 18:50 | NUR ---
ROSA SPOKE TO SALO, ELECT[employer] GL[employer]ER OF [facility], AND DREW SAID THAT THEY CANNOT ACCEPT THE PT TONIGHT DUE TO THEIR LACK OF STAFFING. TAMI TORRES WAS INFORMED.
--- NOTE | 2021-11-03 19:40 | NUR ---
ENDORSED PT TO NIGHT RN FOR CONTINUITY OF CARE.
[2021-11-03 20:00] VITALS: BP 116/61
[2021-11-04] MEDS: HYDRAGUARD CREAM TP SCH (01:27)
--- NOTE | 2021-11-04 01:35 | NUR ---
PT LAYING IN BED W/ NO SIGNS OF RESPIRATORY DISTRESS SATING 95% ON RA. BS CLEAR/DIMINISHED THROUGHOUT. PT STATES SHES FEELS OKAY. WILL CONTINUE TO MONITOR.
[2021-11-04 04:00] VITALS: BP 119/69
[2021-11-04] MEDS: LINEZOLID 600 MG TAB PO SCH (06:19)
[2021-11-04] MEDS: BLOOD GLUCOSE MONITORING 1 DEV DEV FS SCH (06:49)
--- NOTE | 2021-11-04 06:49 | NUR ---
the patient vitals are stable. she sleeps comfortable in her bed . no complain of pain . scheduled meds were administered on time. she had discharge order since yesterday but the receivining facility has staff shortage . will be scheduled for today . comfrt and safety measures are provided.
[2021-11-04] MEDS: carvediloL 6.25 MG TAB PO SCH (09:00)
[2021-11-04] MEDS: CALCIUM CARBONATE 500 MG TAB.CHEW PO SCH (09:07)
[2021-11-04] MEDS: BUMETANIDE 1 MG TAB PO SCH (09:08)
[2021-11-04] MEDS: ESCITALOPRAM 20 MG TAB PO SCH (09:08)
[2021-11-04] MEDS: DOCUSATE SODIUM 100 MG GELCAP PO SCH (09:09)
[2021-11-04] MEDS: FERROUS SULFATE 325 MG TABEC PO SCH (09:09)
[2021-11-04] MEDS: LEVOTHYROXINE 0.075 MG TAB PO SCH (09:10)
[2021-11-04] MEDS: EPOETIN ALFA-EPBX 10,000 UNITS/ML VIAL SUBQ SCH (09:14)
--- NOTE | 2021-11-04 09:15 | NUR ---
SCHEDULED MEDICATIONS DUE GIVEN. WILL CONTINUE TO MONITOR.
--- NOTE | 2021-11-04 12:00 | NUR ---
DISCHARGE INSTRUCTIONS PROVIDED TO PATIENT IN [place]. INSTRUCTIONS ON NEW/CHANGED MEDICATION REGIMEN AND SIDE EFFECTS, DIET REGIMEN, AND FOLLOW-UP WITH HEMODIALYSIS AND WOUND CARE MANAGEMENT. ANSWERED ALL OF PATIENT'S QUESTIONS REGARDING DISCHARGE. VERBALIZED UNDERSTANDING. SISTER CALLED EARLIER FOR UPDATE, AND LET HER KNOW THAT PATIENT WAS BEING TRANSFERRED LATER TODAY BACK TO [facility]. ANSWERED ALL OF SISTER'S QUESTIONS AT THE TIME. SISTER VERBALIZED UNDERSTANDING.
--- NOTE | 2021-11-04 12:25 | NUR ---
TRANSPORTERS ON UNIT TO TAKE PATIENT TO [facility]. ID BANDS REMOVED. PATIENT TRANSFERRED AT THIS TIME TO [facility]. GAVE REPORT TO STEPAN LEONG AT [facility]. ANSWERED ALL OF RN'S QUESTIONS. [facility] AWAITING FOR PATIENT ARRIVAL.
[2021-11-13] MEDS ORDERED: PRO5 PO (17:13)
== END 2021-11-04 12:20 | DRG 720 ==
LOC: MED 21:18 → MTU 10-25 00:12
PROVIDERS: ADMIT Family Medicine; ATTEND Hospitalist
PROC: 5A1D70Z Performance of Urinary Filtration, Intermittent, Less than 6 Hours Per Day (ICD-10-PCS; 2021-10-25)
PROC: 5A1D70Z Performance of Urinary Filtration, Intermittent, Less than 6 Hours Per Day (ICD-10-PCS; 2021-10-27)
PROC: 02HV33Z Insertion of Infusion Device into Superior Vena Cava, Percutaneous Approach (ICD-10-PCS; principal; 2021-10-30)
PROC: B548ZZA Ultrasonography of Superior Vena Cava, Guidance (ICD-10-PCS; 2021-10-30)
PROC: 5A1D70Z Performance of Urinary Filtration, Intermittent, Less than 6 Hours Per Day (ICD-10-PCS; 2021-10-30)
PROC: 30233N1 Transfusion of Nonautologous Red Blood Cells into Peripheral Vein, Percutaneous Approach (ICD-10-PCS; 2021-11-01)
PROC: 5A1D70Z Performance of Urinary Filtration, Intermittent, Less than 6 Hours Per Day (ICD-10-PCS; 2021-11-01)
PROC: 5A1D70Z Performance of Urinary Filtration, Intermittent, Less than 6 Hours Per Day (ICD-10-PCS; 2021-11-02)
PROC: 5A1D70Z Performance of Urinary Filtration, Intermittent, Less than 6 Hours Per Day (ICD-10-PCS; 2021-11-04)
DX: A41.9 Sepsis, unspecified organism (principal); N17.9 Acute kidney failure, unspecified; E44.0 Moderate protein-calorie malnutrition; F25.9 Schizoaffective disorder, unspecified; N18.6 End stage renal disease; D63.8 Anemia in other chronic diseases classified elsewhere; I12.0 Hypertensive chronic kidney disease with stage 5 chronic kidney disease or end stage renal disease; Z68.45 Body mass index [BMI] 70 or greater, adult; E11.22 Type 2 diabetes mellitus with diabetic chronic kidney disease; L03.317 Cellulitis of buttock; E03.9 Hypothyroidism, unspecified; E66.01 Morbid (severe) obesity due to excess calories; E86.0 Dehydration; E87.70 Fluid overload, unspecified; B95.2 Enterococcus as the cause of diseases classified elsewhere; N39.0 Urinary tract infection, site not specified; Z16.21 Resistance to vancomycin; Z20.822 Contact with and (suspected) exposure to COVID-19; L03.116 Cellulitis of left lower limb; L03.115 Cellulitis of right lower limb; Z88.6 Allergy status to analgesic agent; Z88.8 Allergy status to other drugs, medicaments and biological substances; Z79.899 Other long term (current) drug therapy; Z88.5 Allergy status to narcotic agent; Z99.2 Dependence on renal dialysis
CPT/HCPCS: 36415; 71045; 80048; 80053; 80202; 81001; 82140; 82948; 83540; 83605; 83690; 83735; 84100; 84484; 85018; 85025; 85610; 85651; 85730; 86140; 86886; 86900; 86901; 86920; 87040; 87070; 87075; 87081; 87086; 87186; 87205; 93005; 96365; 96367; 96375; 99285; J0692; J0696; J1644; J2765; J3010; J3370; J7060; P9016; Q0092; Q5106

== ENCOUNTER 2021-11-06 10:55 | Emergency (ER) | payer OTHER ==
[~2021-11-06] VITALS: Ht 165.1 cm; Wt 204.1 kg
[~2021-11-06 10:55] MED LIST changes: +LINE600T10 PO
[2021-11-06 11:01] VITALS: BP 107/51
--- NOTE | 2021-11-06 11:08 | NUR ---
PT TO AMB 1.
--- NOTE | 2021-11-06 11:55 | NUR ---
DR BARAHONA SPOKE WITH PTS SISTER DANNY REGARDING PTS D/C INSTRUCTIONS
--- NOTE | 2021-11-06 14:30 | NUR ---
Patient discharged with v/s stable. Written and verbal after care instructions ABOUT DIALYSIS given and explained. Patient verbalized understanding. Ambulance Transport with to custodial. All questions addressed prior to discharge. Advised to follow up with PMD.
== END 2021-11-06 14:30 | disposition home or self-care (01) ==
LOC: MED 10:55
DX: I12.0 Hypertensive chronic kidney disease with stage 5 chronic kidney disease or end stage renal disease (principal); N18.6 End stage renal disease; K21.9 Gastro-esophageal reflux disease without esophagitis; I10 Essential (primary) hypertension; E03.9 Hypothyroidism, unspecified; Z99.2 Dependence on renal dialysis; Z95.1 Presence of aortocoronary bypass graft; Z88.5 Allergy status to narcotic agent; Z88.8 Allergy status to other drugs, medicaments and biological substances; Z79.899 Other long term (current) drug therapy; Z79.82 Long term (current) use of aspirin
CPT/HCPCS: 99283